=== PATIENT | female | born 1930 | race Caucasian/White ===

== ENCOUNTER 2017-08-10 02:15 | Inpatient (IN) | payer OTHER ==
[~2017-08-10] VITALS: Ht 154.9 cm; Wt 59.0 kg
[~2017-08-10 02:15] MED LIST: ADVAIR DISKU 11 UNIT INH; ALENDRONATE SOD70 M2 PO; AUGMENTIN 875-1 EACH PO; CARBIDOPA-LEVO1 EA13 PO; CARDIZEM 30 MG30 MG PO; LASIX20 MG PO; LEVOTHYROXINE100 MC1 PO; NITROGLYCERIN2.5 MG TOP; PRAVASTATIN SOD40 M2 PO; PREDNISONE10 M2 PO; PREDNISONE10 MG PO; SENNA-PLUS 50 M1 TAB PO; SPIRIVA 18 MCG18 MCG INH
--- NOTE | 2017-08-10 03:14 | ED DYSPNEA/ASTHMA COMPLAINT ---
History of Present Illness General Chief Complaint: Dyspnea (COPD, CHF, Other) Stated Complaint: PT BIBA C/O DIFF BREATHING Source: patient, family, old records, EMS Exam Limitations: dementia Vital Signs & Intake/Output Vital Signs & Intake/Output Vital Signs Date Time Temp Pulse Resp B/P B/P Pulse O2 O2 Flow FiO2 Mean Ox Delivery Rate 08/10 0342 97 Nasal 2.0L Cannula 08/10 226 93 Nasal 3.0L Cannula 08/11 219 97.9 105 20 124/66 95 Nasal 2.0L Cannula Allergies Coded Allergies: codeine (Severe, MY HEAD FELT LIKE IT WAS GOING TO EXPLODE 06/21/17) Reconcile Medications Alendronate Sodium 70 MG TAB 1 TAB PO ONCE A WEEK BONES (Reported) Amoxicillin/Potassium Clav (Augmentin 875-125 Tablet) 875 MG-125 MG TABLET 1 TAB PO BID COPD EXACERBATION Diltiazem HCl (Cardizem 30 MG Tablet) 30 MG TAB 1 TAB PO Q8 HEART RATE CONTROL PLEASE 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 KEEP FOR 12 HRS, AND OFF FOR 12 HOURS PER DAY Pravastatin Sodium 40 MG TABLET 1 TAB PO DAILY CHOLESTEROL (Reported) Prednisone 10 MG TAB 0 PO DAILY COPD PLEASE TAKE 3 TABS ON 03/17 AND 03/18 2 TABS ON 03/19, 03/20 AND 03/21 1 TAB ON 03/22, 03/23 AND 03/24 Prednisone 10 MG TABLET 1 TAB PO DAILY COPD EXACERBATION TAKE 3 TABS FOR 3 DAYS THEN TAKE 2 TABS FOR 3 DAYS THEN TAKE 1 TAB FOR 3 DAYS Tiotropium [place] (Spiriva) 18 MCG CAP.W.DEV 1 CAP INH DAILY EMPHYSEMA ( Reported) Triage Note: BIBA FROM HOME WITH C/O CHF EXACERBATION. PER EMS PT REPORTS DIFFICULTY BREATHING X1 DAY. PT ON O2 AT 2 L NC AT BASELINE. EMS HAD GIVEN PT 3 NITROS FOR ELEVATED BPS. PT ARRIVES ON 4 L NC. PT TITRATED DOWN TO 2 L NC. VSS. PT HAS ABRASION TO RIGHT ARM. Triage Nurses Notes Reviewed? yes Onset: Last week Duration: day(s):, changing over time, continues in ED, getting worse Timing: recent history Severity: moderate Activities at Onset: activity Prior Episodes/Possible Cause: occasional episodes Modifying Factors: Improves With: rest. Worsens With: movement. Associated Symptoms: cough, edema, wheezing, weakness LMP (ages 10-50): post menopausal : No Patient currently breastfeeds: No HPI: 1 week prior to admission family reports the patient has had increasing dyspnea on exertion wheezing shortness of breath at rest ankle swelling with chronic cough. There's been no fever chills nausea vomiting diarrhea abdominal pain chest pain headache dysuria rash bleeding. Past History Travel History Traveled to [place] past 21 day No Medical History Any Pertinent Medical History? 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 No Review of Systems Review of Systems Constitutional: Reports: see HPI, weakness. EENTM: Reports: no symptoms. Respiratory: Reports: see HPI, cough, short of breath, sputum production, wheezing. Cardiovascular: Reports: see HPI, edema. GI: Reports: no symptoms. Genitourinary: Reports: no symptoms. Musculoskeletal: Reports: no symptoms. Skin: Reports: no symptoms. Neurological/Psychological: Reports: no symptoms. Hematologic/Endocrine: Reports: no symptoms. Immunologic/Allergic: Reports: no symptoms. All Other Systems: Reviewed and Negative Physical Exam Physical Exam General Appearance: well developed/nourished, alert, awake, anxious, mild distress, obese Head: atraumatic, normal appearance Eyes: Bilateral: normal appearance, PERRL, EOMI. Ears, Nose, Throat: normal pharynx, normal ENT inspection Neck: normal inspection, supple, full range of motion, no midline tenderness Respiratory: chest non-tender, quiet respiration, decreased breath sounds, wheezing Cardiovascular: regular rate/rhythm, normal peripheral pulses, norml femoral pulses equa Peripheral Pulses: 4+ carotid (R), 4+ carotid (L) Gastrointestinal: normal bowel sounds, soft, non-tender, no organomegaly Extremities: normal capillary refill, normal range of motion, pedal edema, no ligament instability Neurologic/Psych: no motor/sensory deficits, awake, alert, normal gait, normal mood/affect Skin: normal color, rash Lymphatic: no anterior cervical makeda Core Measures ACS in differential dx? No CVA/TIA Diagnosis No Sepsis Present: No Sepsis Focused Exam Completed? No Progress Differential Diagnosis: asthma, bronchitis, CHF, COPD, pneumonia Plan of Care: Orders Procedure Date/time Status Regular Diet 08/10 B Active Patient Data 08/10 1644 Active OXYGEN SETUP (GEN) 08/10 0408 Active Saline Lock 08/10 0408 Active Admit to inpatient 08/10 0408 Active Vital Signs 08/10 0408 Active Activity/Ambulation 08/10 0408 Active Code Status 08/10 0408 Active TROPONIN LEVEL 08/10 0257 Complete MAGNESIUM 08/10 0257 Complete COMPREHENSIVE METABOLIC PANEL 08/10 0257 Complete CBC WITHOUT DIFFERENTIAL 08/10 0257 Complete B-TYPE NATRIURETIC PEP (BNP) 08/10 0257 Complete EKG 08/10 0233 Active Laboratory Tests 08/10/17 0327: Anion Gap 11, Estimated GFR 53 L, BUN/Creatinine Ratio 23.0, Glucose 106 H, Calcium 9.4, Magnesium 1.8, Total Bilirubin 0.3, AST 14, ALT 12, Alkaline Phosphatase 62, Troponin I < 0.01, Nhk-D-Ergxcgbnzdh Pept 270 H, Total Protein 6.1 L, Albumin 3.4 L, Globulin 2.7, Albumin/Globulin Ratio 1.3, CBC w Diff NO MAN DIFF REQ, RBC 3.89 L, MCV 91.3, MCH 30.0, MCHC 32.9 L, RDW 13.8, MPV 8.3, Gran % 73.3, Lymphocytes % 15.5 L, Monocytes % 6.9, Eosinophils % 3.2, Basophils % 1.1, Absolute Granulocytes 6.7 H, Absolute Lymphocytes 1.4, Absolute Monocytes 0.6, Absolute Eosinophils 0.3, Absolute Basophils 0.1 Diagnostic Imaging: Viewed by Me: Radiology Read. Discussed w/RAD: Radiology Read. CXR Impression: No acute airspace disease. Lung hyperinflation. Initial ED EKG: normal axis, normal intervals, normal p-waves, normal QRS complex, normal sinus rhythm, no ST T wave changes Prior EKG: unchanged Rhythm Strip: normal sinus rhythm Departure Departure Disposition: STILL A PATIENT Condition: Stable Clinical Impression Primary Impression: COPD exacerbation Secondary Impressions: CHF (congestive heart failure) Referrals: Kerwin Deshpande MD (PCP/Family) Departure Forms: Customer Survey General Discharge Information Admission Note Spoke With: Magdy Khan MD Documentation of Exam: Documentation of any treatments & extenuating circumstances including Concerns Regarding Discharge (functional status, medication knowledge or non-compliance, living conditions, etc.) that warrant an admission rather than observation: Supplemental oxygen serial beta agonist nebs IV steroids IV diuresis pulmonary evaluation cardiology evaluation physical therapy medication adjustment continuing care discharge planning Critical Care Note Critical Care Note Critical Care Time: 30-74 min (35)
--- NOTE | 2017-08-10 03:24 | RADIOLOGY REPORT ---
EXAMINATION: CHEST 1 VIEW CLINICAL INFORMATION: Shortness of breath. Wheezing. COMPARISON: June 21, 2017. TECHNIQUE: An AP view of the chest is provided. FINDINGS: The cardiac silhouette is not enlarged. The mediastinal and hilar contours are unremarkable. There are neither pleural effusions nor pneumothoraces. There are no consolidations. The lungs are hyperinflated. The osseous structures are stable. IMPRESSION: No acute airspace disease. Lung hyperinflation.
[2017-08-10 03:35] LABS: ABSOLUTE BASOPHIL COUNT 0.1 /CUMM (0.0-0.2); ABSOLUTE EOSINOPHIL COUNT 0.3 /CUMM (0.0-0.7); ABSOLUTE GRANULOCYTE CT 6.7 /CUMM (1.4-6.5); ABSOLUTE LYMPH COUNT 1.4 /CUMM (1.2-3.4); ABSOLUTE MONOCYTE COUNT 0.6 /CUMM (0.10-0.60); BASOPHIL % 1.1 % (0.0-2.0); EOSINOPHIL % 3.2 % (0-5); GRANULOCYTE % 73.3 % (42.2-75.2); HEMATOCRIT 35.5 % (37-47); MEAN CORPUSCULAR HGB CONC 32.9 G/DL (33.0-37.0); MEAN CORPUSCULAR VOLUME 91.3 FL (81.0-99.0); MEAN PLATELET VOLUME 8.3 FL (7.4-10.4); PLATELET COUNT 243 /CUMM (130-400); RBC DISTRIBUTION WIDTH 13.8 % (11.5-14.5); RED BLOOD CELL CT 3.89 /CUMM (4.20-5.40); WHITE BLOOD CELL COUNT 9.2 /CUMM (4.8-10.8)
--- NOTE | 2017-08-10 04:58 | History & Physical ---
Chen HARDING,Jordana 08/10/17 0458: General Information and HPI MD Statement: I have seen and personally examined SHRUTHI WOLFE and documented this H&P. The patient is a 87 year old F who presented with a patient stated chief complaint of [SOB]. Source of Information: patient, family, old records Exam Limitations: no limitations History of Present Illness: 84 YO F with a PMH of COPD (on home O2, 2L), hypothyroidism, hyperlipidemia, HFpEF,dementia who was BIBA for chief complaint of acute progressive worsening of shortness of breath. As per the patient daughter who was at the bedside patient woke up at around 1:50 AM complaining of shortness of breath and not being able to breathe. She asked her daughter to call 911. Patient has been experiencing increasing shortness of breath over the past month with severe episode of worsening shortness of breath which have been last week. The patient daughter tried to reassure her which helped to improve the shortness of breath. At baseline the patient is on 2 L nasal oxygen however her daughter had to increase it to 3 L while walking due to shortness of breath. Patient also reports a chronic cough with expectoration of whitish sputum, denies fever, chills, nausea, vomiting, diarrhea or constipation. She also denies any chest pain or palpitation Patient follow-up with Dr. Castañeda and Dr. Terry Vitals on admission: Blood pressure 124/66, pulse 105, temperature 97.9, pulse ox 95 on 2 L nasal cannula. Labs on admission: CBCT showed WBC 9.2, hemoglobin 11.7, hematocrit 35.5, platelets 243 Sodium 147, potassium 4.2, BUN 23, creatinine 1, glucose 106 BNP 270 Chest x-ray:No acute airspace disease. Lung hyperinflation. EKG: Normal sinus rhythm 101, AZ 131, QTc 446, no STT wave changes Last echo on 03/09 showed 1. This was a technically difficult examination. 2. Mild to moderate aortic sclerosis is present with no valvular stenosis or insufficiency. 3. Mitral leaflet thickening is present with mild to moderate anular calcification and minimal mitral insufficiency with mild left atrial dilatation. 4. There is no significant pericardial fluid present. 5. The left ventricular chamber size is normal. THere appears to be mild localized posterobasal hypokinesia present with an ejection fraction of at least 55%. 6. The right heart structures were not optimally visualized. Minimal to mild tricuspid insufficiency is present. The RV systolic pressure was not accurately assessed. 7. Since the prior outpatient echocardiogram of 06/07, there has been no change. 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 Cardiovascular: Reports: edema, peripheral edema. Respiratory: Reports: cough, short of breath, wheezing. GI: Denies: no symptoms. Genitourinary: Denies: no symptoms. Musculoskeletal: Denies: no symptoms. Neurological/Psychological: Denies: no symptoms. Exam & Diagnostic Data Last 24 Hrs of Vital Signs/I&O Vital Signs Date Time Temp Pulse Resp B/P B/P Pulse O2 O2 Flow FiO2 Mean Ox Delivery Rate 08/10 0342 97 Nasal 2.0L Cannula 08/10 0227 93 Nasal 3.0L Cannula 08/10 0220 97.9 105 20 124/66 95 Nasal 2.0L Cannula Intake & Output 08/10 0800 08/10 0000 08/09 1600 Intake Total Output Total Balance Patient 130 lb Weight Weight Estimated Measurement Method Physical Exam General Appearance Alert, Cooperative, No Acute Distress HEENT Atraumatic, PERRLA, EOMI, Mucous Membr. moist/pink Neck Supple Cardiovascular Normal S1, Normal S2 Lungs bilateral wheezing and decreased air entery Abdomen Normal Bowel Sounds, Soft Neurological Normal Speech Extremities No Clubbing, No Cyanosis, 2 + pitting edema more on the left leg 3X3 cm laceration on the left forearm, and 3X3 bruise on the left arm Assessment/Plan Assessment: 84 YO F with a PMH of COPD (on home O2, 2L), hypothyroidism, hyperlipidemia, HFpEF,dementia who was BIBA for chief complaint of acute progressive worsening of shortness of breath. As per the patient daughter who was at the bedside patient woke up at around 1:50 AM complaining of shortness of breath and not being able to breathe. She asked her daughter to call 911. Patient has been experiencing increasing shortness of breath over the past month with severe episode of worsening shortness of breath which have been last week. Problem list: COPD exacerbation ? CHF exacerbation Chronic medical conditions including hypothyroidism, hyperlipidemia, HF PEF Plan: Admit to telemetry Continuous telemetry monitoring IV Solu-Medrol 40 mg every 8 IV azithromycin TRC, nebs Oxygen supplementation to keep oxygen saturation above 92 P.o. Mucinex twice daily Strict I's and O's Daily weights Cardiology consult in a.m. (Dr. Castañeda Pulmonology consult in a.m. (Dr. Rosario Doppler ultrasound lower extremity to rule out DVT Continue home meds Can consider starting IV Lasix depending on the volume status with the patient Full code Heart healthy diet DVT prophylaxis with subcutaneous heparin As Ranked By This Provider Problem List: 1. COPD exacerbation Core Measures/Misc (12/10) Acute Coronary Syndrome ACS Diagnosis: No Congestive Heart Failure Congestive Heart Failure Diagnosis No Cerebrovascular Accident CVA/TIA Diagnosis: No VTE (View Protocol) VTE Risk Factors Age>40 No Mechanical VTE Prophylaxis d/t N/A MechProphylax Ordered No VTE Pharm Prophylaxis d/t NA PharmProphylax ordered Sepsis (View protocol) Sepsis Present: No Rubens Marcum MD 08/10/17 0501: General Information and HPI Allergies/Medications Home Med list Albuterol Sulfate 1.25 MG/3 ML VIAL.NEB 1 Vial INH/VU Q4-6 PRN COPD ( Reported) Alendronate Sodium 70 MG TABLET 1 TAB PO QW BONE (Reported) in the morning, at least 30 minutes before the first food, beverage, or medication of the day Diltiazem HCl 30 MG TABLET 1 TAB PO BID HEART (Reported) Levothyroxine Sodium 100 MCG TABLET 1 TAB PO DAILY HYPOTHYROIDISM (Reported) Pravastatin Sodium 40 MG TABLET 1 TAB PO QPM HYPERLIPIDEMIA, HEART (Reported) Umeclidinium [place] (Incruse Ellipta) 62.5 MCG/ACTUATION BLST.W.DEV 62.5 MG INH DAILY COPD (Reported) Resident Review Statement Resident Statement: examined this patient, discussed with international nurse, agreed with international nurse, discussed with family, reviewed EMR data (avail), discussed with nursing , reviewed images, amended to note Other Findings: 87 yo F with pmh of COPD on 2 L oxygen at home, hypothyroidism, diastolic CHF, hyperlipidemia, dementia, ? Osteoporosis, was brought into the emergency via ambulance, for worsening shortness of breath. The patient was in her usual state of health, using oxygen via nasal cannula at 2 L/m, ambulating on a rolling walker with support until a week ago, when she started having increased shortness of breath, to the point where yesterday morning she was short of breath even at rest. She denied any chest pain, palpitation, chest heaviness/ pressure, changes in her cough/sputum, fever/chills, but mentioned that her daughter had noticed her legs to be more swollen than usual. In the field, patient received 3 nitroglycerin, and she had received IV diuretic and IV steroids already in the ED at the time of interview, thus the patient was complaining of headache. She was having b/l auditory wheezing. Vitals, labs, images as noted above. EKG heart rate 101, QTC 446, AZ 131, no acute ischemic changes noted. Patient is being admitted in the telemetry floor for the management of following issues: #Acute hypoxic respiratory failure, secondary to a COPD, CHF exacerbation Patient's history including worsening shortness of breath with increasing leg edema with JVR (with no JVD), and getting better with IV Lasix is suggestive of acute CHF but her cough, wheezing extensively could be due to AE of COPD. The fact that she is progressively getting short of breath at home in the setting of COPD could also mean cor pulmonale. * Admit patient to telemetry * Monitor vitals, SPO2, I/O regularly * Oxygen to titrate SPO2 > 90% * TRC/nebs * IV steroids every 8 hours for now * IV azithromycin considering AE of COPD * Serial troponin and EKG to rule out ACS * Monitor daily weights * Patient already received IV Lasix today, please reassess for further diuresis * Cardiology (Dr Castañeda) and pulmonary (Dr Cameron) consultation to be placed * Mucinex ordered BID #Will continue rest of her home medications. #Housekeeping: Diet: Heart healthy/regular DVT prophylaxis: SQ Lovenox CODE STATUS: Full code MEDS confirmed at [facility] at [facility] [place] by me: 08/10/17: all oral: levothyroxine 100 mcg daily alendronate 70 q week albuterol nebs diltiazem ir 30 BID pravastatin 40 HS INCRUSE ELLIPTA 62.5 mcg daily ErinMagdy greene 08/10/17 0551: Attending MD Review Statement Attending Statement Attending MD Statement: examined this patient, discuss w/resident/PA/GOVERNMENT PROGRAM MANAGER, agreed w/resident/PA/GOVERNMENT PROGRAM MANAGER, discussed with family, reviewed EMR data (avail), reviewed images, amended to note Attending Assessment/Plan: CC: Worsening shortness of breath PMH: COPD on 2 L nasal cannula, hypothyroidism, HLD, HFpEF, dementia Patient came to ER for acute worsening of shortness of breath. According to daughter patient woke up with severe shortness of breath, wheezing, cost her to call 911. Patient denied any chest pain or chest tightness or pressure-like symptoms at that time. "I just could not breathe". According to daughter she has been noticing progressive worsening of shortness of breath since last 1 month, gradually worsening, more so with dyspnea on exertion, wheezing, family also noticed worsening of leg swelling. Daughter had to increase her oxygen from 2 L to 3 L while walking. Patient has productive cough which is chronic, no change in the color of sputum. Patient denies any fever or chills but has mild headache , otherwise complete ROS unremarkable. Vitals: Temperature 97.9, pulse 105, RR 20, blood pressure 124/66, saturating 95 % on 3 L nasal cannula On exam: A O 3, cooperative, in moderate respiratory distress, neck supple, JVD normal, JVR +, no lymphadenopathy, mucosa moist, no focal neurological deficit, residual right leg stiffness, +1 leg edema L> R, skin laceration on right forearm, CVS: S1-S2, RRR. RS: Wheezing throughout the lung galeano. Abdomen: Soft , NT, ND, bowel sounds present. CXR: No acute airspace disease. Lung hyperinflation. Assessment and plan 87-year-old female with above-mentioned past medical history presented in ER for acute on chronic shortness of breath. According to daughter patient has been getting progressively short of breath over last 1 month duration, more dyspnea on exertion but over last 2 days patient was short of breath even at rest. Today patient woke up from her sleep with difficulty breathing, wheezing and they called 911. Patient received [address] as her blood pressure was high according to the EMS note. After arrival in ER patient received nebulization treatment, Lasix 40 mg and Solu-Medrol, had moderate symptom relief. On our examination she was still wheezing throughout the lung galeano, no obvious JVD but JVR present, mild leg swelling L > R, pitting. Patient appears to have COPD exacerbation but a competent of heart failure or cor pulmonale cannot be denied. Patient currently not on any oral Lasix at home. + COPD exacerbation + Suspected heart failure and cor pulmonale + Headache secondary to nitroglycerin + History of COPD on 2 L nasal cannula, hypothyroidism, HLD, HFpEF - Admit to telemetry - Continuous telemetry monitoring - Continue O2 by nasal cannula - Reevaluate for volume status tomorrow for IV Lasix - Strict I's and O's - Daily weights - Serial troponin and EKGs - Cardiology consult in a.m. : Patient known to Dr. Castañeda - IV methylprednisolone 40 mg every 8 hours - IV azithromycin - TRC nebulization with albuterol and ipratropium scheduled and when necessary - Mucinex scheduled twice a day - Continue rest of the home medications - Pulmonology consult: Patient known to Dr. Hardin - Adequate pain control - DVT prophylaxis
--- NOTE | 2017-08-10 05:53 | Admission Certification ---
Admission Certification Certification Statement - As attending physician, I certify that at the time of - admission, based on clinical presentation, severity of - symptoms, need for further diagnostic testing and - therapeutic interventions, and risk of adverse outcomes - without in-hospital treatment, in my clinical assessment, - this patient requires an acute hospital stay for a minimum - of two nights or longer. I have also considered psychsocial - factors such as support system, advanced age, financial - issues, cognitive issues, and failed out-patient treatments, - past re-admission history, safety of patient, and lack of - compliance as applicable. Specific rationale supporting this admission is: COPD exacerbation, heart failure
[2017-08-10] MEDS ORDERED: INCRUSE ELLI62.5 MCG INH (05:57)
[2017-08-10] MEDS ORDERED: ALBUTEROL1.25 MG/1 INH/SOL (05:57)
[2017-08-10] MEDS ORDERED: CARDIZEM30 M1 PO (05:58)
[2017-08-10] MEDS ORDERED: DILTIAZEM HCL30 M1 PO (05:59)
[2017-08-10 07:02] VITALS: BP 142/90
--- NOTE | 2017-08-10 10:26 | PN- Att Addend ---
See Addendum Attending Addendum Attending Brief Note 87-year-old female with above-mentioned past medical history presented in ER for SOB on exertion, mild leg swelling L > R, pitting. BNP 270. Received steroids overnight with improvement. Vitals and labs noted. 1 COPD exacerbation 2 Acute on chronic respiratroy insufficiency and cor pulmonale 3 hypertension uncontrolled on arrival now with improvement 4 History of COPD on 2 L nasal cannula, hypothyroidism, HLD, HFpEF - Continuous telemetry monitoring - Continue O2 by nasal cannula - Strict I's and O's - Daily weights - Serial troponin and EKGs - Cardiology consult - IV methylprednisolone 40 mg every 8 hours - IV azithromycin - TRC nebulization with albuterol and ipratropium scheduled and when necessary - Mucinex scheduled twice a day - Continue rest of the home medications - Pulmonology consult if no improvement - Adequate pain control - DVT prophylaxis PCP Dr Deshpande. Ranjan plan of care as per admitting physician. Admission Lab Results I reviewed the following labs: Laboratory Tests 08/10 08/10 0905 0327 Chemistry Sodium (137 - 145 mmol/L) 147 H Potassium (3.5 - 5.1 mmol/L) 4.2 Chloride (98 - 107 mmol/L) 105 Carbon Dioxide (22 - 30 mmol/L) 31 H Anion Gap (5 - 16) 11 BUN (7 - 17 mg/dL) 23 H Creatinine (0.5 - 1.0 mg/dL) 1.0 Estimated GFR (>60 ml/min) 53 L BUN/Creatinine Ratio (7 - 25 %) 23.0 Glucose (65 - 99 mg/dL) 106 H Calcium (8.4 - 10.2 mg/dL) 9.4 Magnesium (1.6 - 2.3 mg/dL) 1.8 Total Bilirubin (0.2 - 1.3 mg/dL) 0.3 AST (14 - 36 U/L) 14 ALT (9 - 52 U/L) 12 Alkaline Phosphatase (<127 U/L) 62 Troponin I (< 0.11 ng/ml) Pending < 0.01 Wrf-O-Vahisnqaleo Pept (<125 pg/mL) 270 H Total Protein (6.3 - 8.2 g/dL) 6.1 L Albumin (3.5 - 5.0 g/dL) 3.4 L Globulin (1.9 - 4.2 gm/dL) 2.7 Albumin/Globulin Ratio (1.1 - 2.2 %) 1.3 Hematology CBC w Diff NO MAN DIFF REQ WBC (4.8 - 10.8 /CUMM) 9.2 RBC (4.20 - 5.40 /CUMM) 3.89 L Hgb (12.0 - 16.0 G/DL) 11.7 L Hct (37 - 47 %) 35.5 L MCV (81.0 - 99.0 FL) 91.3 MCH (27.0 - 31.0 PG) 30.0 MCHC (33.0 - 37.0 G/DL) 32.9 L RDW (11.5 - 14.5 %) 13.8 Plt Count (130 - 400 /CUMM) 243 MPV (7.4 - 10.4 FL) 8.3 Gran % (42.2 - 75.2 %) 73.3 Lymphocytes % (20.5 - 51.1 %) 15.5 L Monocytes % (1.7 - 9.3 %) 6.9 Eosinophils % (0 - 5 %) 3.2 Basophils % (0.0 - 2.0 %) 1.1 Absolute Granulocytes (1.4 - 6.5 /CUMM) 6.7 H Absolute Lymphocytes (1.2 - 3.4 /CUMM) 1.4 Absolute Monocytes (0.10 - 0.60 /CUMM) 0.6 Absolute Eosinophils (0.0 - 0.7 /CUMM) 0.3 Absolute Basophils (0.0 - 0.2 /CUMM) 0.1 Admission Meds I reviewed the following Meds: Current Medications Sig/Tata Start time Last Medication Dose Stop Time Status Admin Acetaminophen 650 MG Q6P PRN 08/10 0600 AC 08/10 (Tylenol) 0549 Acetaminophen 1,000 MG Q6P PRN 08/10 0600 AC (Ofirmev) Albuterol Sulfate 3 ML Q6P PRN 08/10 0615 AC (Proventil) Alendronate Sodium 70 MG QTHURS@0700 08/16 0700 AC (Fosamax) Atorvastatin Calcium 40 MG 1700 08/10 1700 AC (Lipitor) Azithromycin 500 MG DAILY 08/10 09 AC 08/10 (Zithromax) 08/14 958 09 Sodium Chloride 250 ML (Normal Saline 0.9%) Diltiazem HCl 30 MG BID 08/10 0900 AC 08/10 (Cardizem) 922 Enoxaparin Sodium 40 MG DAILY 08/10 0900 AC 08/10 (Lovenox) 922 Guaifenesin 600 MG Q12 08/10 0900 AC 08/10 (Mucinex) 922 Levothyroxine Sodium 0.1 MG DAILY AC 08/10 0700 AC 08/10 (Synthroid) 06 Methylprednisolone 40 MG Q8 08/10 06 AC (Solumedrol) Polyethylene Glycol 17 GM AT BEDTIME NEED.. 08/10 0600 AC (Miralax) Tiotropium [place] 1 PUF DAILY 08/10 0900 AC 08/10 (Spiriva) 922
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
--- NOTE | 2017-08-10 12:04 | Cons- Cardiology ---
General Information and HPI Consulting Request Date of Consult: 08/10/17 Requested By: Javi Russ MD Reason for Consult: Dyspnea; rule out CHF Source of Information: patient History of Present Illness: The patient is an 84-year-old female who is well-known to me. Her past medical history is remarkable for COPD on home oxygen therapy, hypothyroidism, hyperlipidemia, prior diastolic heart failure, mild dementia, etc. The patient was admitted to the hospital for worsening shortness of breath over the last several days which became acutely more prominent over the last 24 hours. From a cardiac perspective, the patient denies any other cardiac symptoms. Of note, her chest x-ray shows no overt evidence of heart failure and her examination is otherwise unremarkable for lower extremity edema, etc. In addition, her proBNP is only 270 Allergies/Medications Allergies: Coded Allergies: codeine (Severe, MY HEAD FELT LIKE IT WAS GOING TO EXPLODE 06/21/17) Home Med List: Albuterol Sulfate 1.25 MG/3 ML VIAL.NEB 1 Vial INH/VU Q4-6 PRN COPD ( Reported) Alendronate Sodium 70 MG TABLET 1 TAB PO QW BONE (Reported) in the morning, at least 30 minutes before the first food, beverage, or medication of the day Diltiazem HCl 30 MG TABLET 1 TAB PO BID HEART (Reported) Levothyroxine Sodium 100 MCG TABLET 1 TAB PO DAILY HYPOTHYROIDISM (Reported) Pravastatin Sodium 40 MG TABLET 1 TAB PO QPM HYPERLIPIDEMIA, HEART (Reported) Umeclidinium [place] (Incruse Ellipta) 62.5 MCG/ACTUATION BLST.W.DEV 62.5 MG INH DAILY COPD (Reported) Current Medications: Current Medications Sig/Tata Start time Last Medication Dose Route Stop Time Status Admin Acetaminophen 650 MG Q6P PRN 08/10 0600 AC 08/10 PO 0549 Acetaminophen 1,000 MG Q6P PRN 08/10 06 AC IV Acetaminophen 0 .STK-MED ONE 08/10 0558 DC PO Albuterol Sulfate 3 ML Q6P PRN 08/10 0615 AC 08/10 INH 1132 Albuterol Sulfate 3 ML ONCE ONE 08/10 0300 DC 08/10 INH 08/10 0301 0338 Alendronate Sodium 70 MG QTHURS@0700 08/16 0700 AC PO Atorvastatin Calcium 40 MG 1700 08/10 1700 AC PO Azithromycin 500 MG DAILY 08/10 09 AC 08/10 Sodium Chloride 250 ML IV 08/14 0959 0923 Diltiazem HCl 30 MG BID 08/10 09 AC 08/10 PO 0923 Enoxaparin Sodium 40 MG DAILY 08/10 09 AC 08/10 SC 0923 Furosemide 0 .STK-MED ONE 08/10 0502 DC IV Furosemide 40 MG ONCE ONE 08/10 0415 DC 08/10 IV 08/10 0416 0503 Guaifenesin 600 MG Q12 08/10 09 AC 08/10 PO 0923 Ipratropium [place] 2.5 ML ONCE ONE 08/10 0300 DC 08/10 INH 08/10 0301 0338 Levothyroxine Sodium 0.1 MG DAILY AC 08/10 0700 AC 08/10 PO 0640 Methylprednisolone 40 MG Q8 08/10 06 AC IV Methylprednisolone 0 .STK-MED ONE 08/10 0502 DC .ROUTE Methylprednisolone 125 MG ONCE ONE 08/10 0415 DC 08/10 IV 08/10 0416 0503 Polyethylene Glycol 17 GM AT BEDTIME NEED.. 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 Surgical History Surgical History: non-contributory Family History Relations & Conditions If Any: Relation not specified for: *No pertinent family history Psychosocial History Smoking Status: Former Smoker ETOH Use: denies use Illicit Drug Use: denies illicit drug use Exam & Diagnostic Data Vital Signs and I&O Vital Signs Date Time Temp Pulse Resp B/P B/P Pulse O2 O2 Flow FiO2 Mean Ox Delivery Rate 08/10 1103 97 Nasal 2.0L Cannula 08/10 0702 98.2 92 20 142/90 97 Nasal Cannula 08/10 0342 97 Nasal 2.0L Cannula 08/10 022 93 Nasal 3.0L Cannula 08/10 022 97.9 105 20 124/66 95 Nasal 2.0L Cannula Intake & Output 08/10 1600 08/10 0800 05/18 0000 08/09 1600 08/09 0800 08/09 0000 Intake Total Output Total 500 Balance -500 Output, Urine 500 Patient 126 lb 130 lb Weight Weight Estimated Measurement Method Physical Exam: General Appearance: well developed/nourished, alert, awake, oriented Head: normal HEENT: Normal Neck: supple, JVP normal, carotid upstrokes normal bilaterally, no masses or thyromegaly Respiratory: chest non-tender, bilateral scattered rhonchi with decreased air entry Cardiovascular: regular rate/rhythm, normal S1, S2, 2/6 systolic murmur Abdomen: normal bowel sounds, soft, non-tender Extremities: normal inspection, no significant edema Vascular: Pulses are 2+ and equal bilaterally Neurologic: Grossly normal/nonfocal Labs/Farzad Results: Laboratory Tests 08/10 08/10 0905 0327 Chemistry Sodium (137 - 145 mmol/L) 147 H Potassium (3.5 - 5.1 mmol/L) 4.2 Chloride (98 - 107 mmol/L) 105 Carbon Dioxide (22 - 30 mmol/L) 31 H Anion Gap (5 - 16) 11 BUN (7 - 17 mg/dL) 23 H Creatinine (0.5 - 1.0 mg/dL) 1.0 Estimated GFR (>60 ml/min) 53 L BUN/Creatinine Ratio (7 - 25 %) 23.0 Glucose (65 - 99 mg/dL) 106 H Calcium (8.4 - 10.2 mg/dL) 9.4 Magnesium (1.6 - 2.3 mg/dL) 1.8 Total Bilirubin (0.2 - 1.3 mg/dL) 0.3 AST (14 - 36 U/L) 14 ALT (9 - 52 U/L) 12 Alkaline Phosphatase (<127 U/L) 62 Troponin I (< 0.11 ng/ml) < 0.01 < 0.01 Shh-S-Pfrsvtloqbj Pept (<125 pg/mL) 270 H Total Protein (6.3 - 8.2 g/dL) 6.1 L Albumin (3.5 - 5.0 g/dL) 3.4 L Globulin (1.9 - 4.2 gm/dL) 2.7 Albumin/Globulin Ratio (1.1 - 2.2 %) 1.3 Hematology CBC w Diff NO MAN DIFF REQ WBC (4.8 - 10.8 /CUMM) 9.2 RBC (4.20 - 5.40 /CUMM) 3.89 L Hgb (12.0 - 16.0 G/DL) 11.7 L Hct (37 - 47 %) 35.5 L MCV (81.0 - 99.0 FL) 91.3 MCH (27.0 - 31.0 PG) 30.0 MCHC (33.0 - 37.0 G/DL) 32.9 L RDW (11.5 - 14.5 %) 13.8 Plt Count (130 - 400 /CUMM) 243 MPV (7.4 - 10.4 FL) 8.3 Gran % (42.2 - 75.2 %) 73.3 Lymphocytes % (20.5 - 51.1 %) 15.5 L Monocytes % (1.7 - 9.3 %) 6.9 Eosinophils % (0 - 5 %) 3.2 Basophils % (0.0 - 2.0 %) 1.1 Absolute Granulocytes (1.4 - 6.5 /CUMM) 6.7 H Absolute Lymphocytes (1.2 - 3.4 /CUMM) 1.4 Absolute Monocytes (0.10 - 0.60 /CUMM) 0.6 Absolute Eosinophils (0.0 - 0.7 /CUMM) 0.3 Absolute Basophils (0.0 - 0.2 /CUMM) 0.1 Diagnostic Data CXR Results FINDINGS: The cardiac silhouette is not enlarged. The mediastinal and hilar contours are unremarkable. There are neither pleural effusions nor pneumothoraces. There are no consolidations. The lungs are hyperinflated. The osseous structures are stable. IMPRESSION: No acute airspace disease. Lung hyperinflation. Assessment/Plan Assessment/Plan Assessment: 1. Worsening shortness of breath; likely related to COPD exacerbation.-At the moment, I do not see any evidence of acute or chronic heart failure. The patient's chest x-ray is clear with no evidence of interstitial edema. Her proBNP is only 270. She has no significant lower extremity edema. 2. History of right heart failure/cor pulmonale 3. History of hyperlipidemia 4. Hypothyroidism Recommendations: -Continue current management as per the medical and pulmonary team -Follow-up echocardiogram to reassess left ventricular function and right ventricular systolic pressure -Further plans after the echocardiogram. -If the patient is to receive IV Lasix, please monitor her renal function, intakes, outputs, and daily weights very closely. Consult Acknowledgment - Thank you for your consult request.
--- NOTE | 2017-08-10 14:33 | ULTRASOUND REPORT ---
EXAMINATION: US TRIPLEX OF LOWER EXTREMITIES, BILATERAL CLINICAL INFORMATION: Bilateral lower extremity swelling COMPARISON: None TECHNIQUE: Color-flow triplex imaging with spectral analysis and compression Doppler were performed on the lower extremities. FINDINGS: Respiratory variation, normal compression and augmented flow are noted throughout the lower extremities. The visualized common femoral vein, superficial femoral vein, profunda femoral vein, popliteal vein and midcalf peroneal and posterior tibial venous segments show no evidence of deep venous thrombosis. There is no Owens's cyst. IMPRESSION: Normal triplex scan without evidence of deep venous thrombosis involving the lower extremities.
[2017-08-10 14:54] VITALS: BP 123/58
[2017-08-10] MEDS ORDERED: ADVAIR 250-501 EACH INH (16:05)
[2017-08-10 22:27] VITALS: BP 118/76
[2017-08-11 06:16] VITALS: BP 128/78
--- NOTE | 2017-08-11 08:09 | PN- Housestaff ---
See Addendum Subjective Follow-up For: AECOPD ?CHF Tele-Events Since Last Visit: NSR with HR 62-91. No overnight events. Subjective: Patient was seen and examined at bedside. Reports feeling well. Has no complaints. No overnight events. Review of Systems Constitutional: Reports: no symptoms. Objective Last 24 Hrs of Vital Signs/I&O Vital Signs Date Time Temp Pulse Resp B/P B/P Pulse O2 O2 Flow FiO2 Mean Ox Delivery Rate 08/11 0616 97.9 97 20 128/78 95 Nasal Cannula 08/10 2227 98.5 109 18 118/76 96 Nasal Cannula 08/10 2122 Nasal 2.0L Cannula 08/10 2113 111 115/76 08/10 1959 96 Nasal 2.0L Cannula 08/10 1454 98.2 105 18 123/58 98 Nasal 2.0L Cannula 08/10 1205 Nasal 2.0L Cannula 08/10 1203 96 Nasal 2.0L Cannula 08/10 1103 97 Nasal 2.0L Cannula Intake & Output 08/11 1600 08/11 0800 08/11 0000 Intake Total Output Total 200 Balance -200 Number 1 Bowel Movements Output, Urine 200 Patient 127 lb Weight Physical Exam General Appearance: Alert, Oriented X3, Cooperative, No Acute Distress Skin: No Rashes, No Breakdown Skin Temp/Moisture Exam: Warm/Dry Sepsis Skin Exam (color): Normal for Ethnicity HEENT: Atraumatic Cardiovascular: Normal S1, Normal S2, No Murmurs Lungs: Clear to Auscultation, Normal Air Movement Abdomen: Soft, No Tenderness Neurological: Normal Speech Extremities: No Edema Last 24 Hrs of Lab/Farzad Results Last 24 Hrs of Labs/Mics: Laboratory Tests 08/11/17 0615: Anion Gap 12, Estimated GFR > 60, BUN/Creatinine Ratio 36.3 H, CBC w Diff Pending, WBC Pending, RBC Pending, Hgb Pending, Hct Pending, MCV Pending, MCH Pending, MCHC Pending, RDW Pending, Plt Count Pending, MPV Pending 08/10/17 1855: Anion Gap 11, Estimated GFR 53 L, BUN/Creatinine Ratio 31.0 H, Magnesium 1.8 08/10/17 1530: Troponin I < 0.01 Assessment/Plan Assessment: 84 YO F with a PMH of COPD (on home O2, 2L), hypothyroidism, hyperlipidemia, HFpEF,dementia who presented to ED with chief complaint of acute progressive worsening of shortness of breath. Assessment: 1. COPD exacerbation 2. History of hypothyroidism 3. History of hyperlipidemia and HFPEF Plan: * Continuous telemetry monitoring * Reduce IV Solu-Medrol 40 mg every 12. Reduce to daily tomorrow if clinically improving * IV azithromycin for a total of 5 days. * TRC, nebs as needed * Oxygen supplementation to keep oxygen saturation above 92%. Currently on 2L * Strict I's and O's * Cardiology and Pulm input appreciated * Echocardiogram - pending * DVT Prophylaxis: SC heparin x 3 * Diet: heart healthy * Code: Full Code Problem List: 1. COPD (chronic obstructive pulmonary disease) Pain Ratin Pain Location: none Pain Goal: Remain pain free Pain Plan: none Tomorrow's Labs & Rationales: CBC, BEP
[2017-08-11 08:34] LABS: ABSOLUTE BASOPHIL COUNT 0 /CUMM (0.0-0.2); ABSOLUTE EOSINOPHIL COUNT 0 /CUMM (0.0-0.7); ABSOLUTE GRANULOCYTE CT 12.9 /CUMM (1.4-6.5); ABSOLUTE LYMPH COUNT 0.9 /CUMM (1.2-3.4); ABSOLUTE MONOCYTE COUNT 0.5 /CUMM (0.10-0.60); BASOPHIL % 0 % (0.0-2.0); EOSINOPHIL % 0 % (0-5); HEMATOCRIT 37.8 % (37-47); MEAN CORPUSCULAR HGB 29.8 PG (27.0-31.0); MEAN CORPUSCULAR HGB CONC 32.4 G/DL (33.0-37.0); MEAN PLATELET VOLUME 9.3 FL (7.4-10.4); PLATELET COUNT 261 /CUMM (130-400); RBC DISTRIBUTION WIDTH 13.9 % (11.5-14.5); RED BLOOD CELL CT 4.11 /CUMM (4.20-5.40)
[2017-08-11 10:54] LABS: WHITE BLOOD CELL COUNT 14.3 /CUMM (4.8-10.8)
--- NOTE | 2017-08-11 13:29 | PN- Pulmonary ---
Subjective HPI/Critical Care Issues: Patient is seen and examined. Her shortness of breath is improving. She has no leg edema. She has no nausea no vomiting no diarrhea no constipation. She has no headaches. Her cough has subsided. Objective Current Medications: Current Medications Sig/Tata Start time Last Medication Dose Route Stop Time Status Admin Acetaminophen 650 MG Q6P PRN 08/10 0600 AC 08/10 PO 2118 Acetaminophen 1,000 MG Q6P PRN 08/10 0600 AC IV Albuterol Sulfate 3 ML BID 08/10 2100 AC 08/11 INH 0915 Alendronate Sodium 70 MG QTHURS@0700 08/16 0700 AC PO Atorvastatin Calcium 40 MG 1700 08/10 1700 AC 08/10 PO 1529 Azithromycin 500 MG DAILY 08/10 0900 AC 08/11 Sodium Chloride 250 ML IV 08/14 0959 0903 Diltiazem HCl 30 MG BID 08/10 0900 AC 08/11 PO 0902 Enoxaparin Sodium 40 MG DAILY 08/10 0900 AC 08/11 SC 0903 Guaifenesin 600 MG Q12 08/10 0900 AC 08/11 PO 0902 Levothyroxine Sodium 0.1 MG DAILY AC 08/10 0700 AC 08/11 PO 0513 Methylprednisolone 40 MG DAILY 08/12 0900 AC IV Methylprednisolone 40 MG Q12 08/11 2100 AC IV 08/12 0000 Methylprednisolone 40 MG Q8 08/10 0600 DC 08/11 IV 0513 Patient Medication 1 ED ONE ONE 08/10 1500 DC Teaching ED 08/10 1501 Polyethylene Glycol 17 GM AT BEDTIME NEED.. 08/10 0600 AC PO Prednisone 40 MG DAILY 08/12 0900 CAN PO Tiotropium [place] 1 PUF DAILY 08/10 0900 AC 08/11 INH 0902 Vital Signs & I&O Last 24 Hrs of Vitals and I&O: Vital Signs Date Time Temp Pulse Resp B/P B/P Pulse O2 O2 Flow FiO2 Mean Ox Delivery Rate 08/12 919 94 Nasal 2.0L Cannula 08/11 901 97 128/78 08/11 0800 94 Nasal 2.0L Cannula 08/12 615 97.9 97 20 128/78 95 Nasal Cannula 08/10 2226 98.5 109 18 118/76 96 Nasal Cannula 08/10 2121 Nasal 2.0L Cannula 08/10 2112 111 115/76 05/18 1959 96 Nasal 2.0L Cannula 08/10 1454 98.2 105 18 123/58 98 Nasal 2.0L Cannula Intake & Output 08/11 1600 08/11 0800 08/11 0000 Intake Total Output Total 200 Balance -200 Number 1 Bowel Movements Output, Urine 200 Patient 127 lb Weight Exam Other Physical Findings: gen awake and alert head/neck oxygen via nasal cannula cvs s1, s2 lungs b/l wheezing improved abd soft, bs+ ext - no edema Results Last 24 Hrs of Lab Results: Laboratory Tests 08/11/17 0615: Anion Gap 12, Estimated GFR > 60, BUN/Creatinine Ratio 36.3 H, CBC w Diff NO MAN DIFF REQ, RBC 4.11 L, MCV 92.0, MCH 29.8, MCHC 32.4 L, RDW 13.9, MPV 9.3, Gran % 90.0 H, Lymphocytes % 6.2 L, Monocytes % 3.8, Eosinophils % 0, Basophils % 0, Absolute Granulocytes 12.9 H, Absolute Lymphocytes 0.9 L, Absolute Monocytes 0.5, Absolute Eosinophils 0, Absolute Basophils 0 08/10/17 1855: Anion Gap 11, Estimated GFR 53 L, BUN/Creatinine Ratio 31.0 H, Magnesium 1.8 08/10/17 1530: Troponin I < 0.01 Impression/Plan Impression/Plan Impression/Plan: Impression 87 year old woman * chronic hypoxemic respiratory failure and COPD, now with an acute exacerbation of COPD likely secondary to environmental exposure (dust/humidity) Plan -titrate fio2 to a goal of >92% -keep solumedrol to 40mg iv q12h, can reduce to po prednisone 40mg tomorrow if no events -trc/nebs -zithromax has been started, can use for 5 days for anti-inflammatory properties DVT prophylaxis at all times
[2017-08-11 14:26] VITALS: BP 106/60
--- NOTE | 2017-08-11 16:20 | Patient Discharge Instructions ---
Discharge Instructions General Discharge Information You were seen/treated for: Shortness of breath 2/2 COPD exacerbation Special Instructions: Please follow up with your sales producer, PCP and spray foam installer within one week of discharge. Please take steroid as 2 pills for 2 days starting tomorrow and one pills for the two days after. Diet Continue normal diet: Yes Activity Full Activity/No Limits: Yes Acute Coronary Syndrome Inclusion Criteria At DC or during hospital stay patient has or had the following: ACS DIAGNOSIS No Discharge Core Measures Meds if any: Prescribed or Continued at Discharge Meds if any: NOT Prescribed or Continued at Discharge Congestive Heart Failure Inclusion Criteria At DC or during hospital stay patient has or had the following: CHF DIAGNOSIS No Discharge Core Measures Meds if any: Prescribed or Continued at Discharge Meds if any: NOT Prescribed or Continued at Discharge Cerebrovascular accident Inclusion Criteria At DC or during hospital stay patient has or had the following: CVA/TIA Diagnosis No Discharge Core Measures Meds if any: Prescribed or Continued at Discharge Meds if any: NOT Prescribed or Continued at Discharge Venous thromboembolism Inclusion Criteria VTE Diagnosis No VTE Type NONE VTE Confirmed by (Test) NONE Discharge Core Measures - Per Current guidelines, there needs to be overlap - treatment for the first 5 days of Warfarin therapy. - If discharged on Warfarin prior to 5 days of - overlap therapy, the patient will need to be - assessed for post discharge needs including - *Post discharge parental anticoagulation - *Warfarin and/or parental anticoagulation education - *Follow up date to check INR post discharge At least 5 days overlap therapy as Inpatient No Meds if any: Prescribed or Continued at Discharge Note: Overlap Therapy is Warfarin and Anticoagulant Meds if any: NOT Prescribed or Continued at Discharge
[2017-08-11 22:46] VITALS: BP 104/76
[2017-08-12 07:06] VITALS: BP 110/68
[2017-08-12 08:28] LABS: ABSOLUTE BASOPHIL COUNT 0 /CUMM (0.0-0.2); ABSOLUTE EOSINOPHIL COUNT 0 /CUMM (0.0-0.7); ABSOLUTE GRANULOCYTE CT 16.3 /CUMM (1.4-6.5); ABSOLUTE LYMPH COUNT 0.9 /CUMM (1.2-3.4); ABSOLUTE MONOCYTE COUNT 0.5 /CUMM (0.10-0.60); BASOPHIL % 0 % (0.0-2.0); EOSINOPHIL % 0 % (0-5); GRANULOCYTE % 91.9 % (42.2-75.2); HEMATOCRIT 36.8 % (37-47); MEAN CORPUSCULAR HGB 30.6 PG (27.0-31.0); MEAN CORPUSCULAR VOLUME 92.6 FL (81.0-99.0); MEAN PLATELET VOLUME 9.3 FL (7.4-10.4); PLATELET COUNT 261 /CUMM (130-400); RBC DISTRIBUTION WIDTH 13.8 % (11.5-14.5); RED BLOOD CELL CT 3.97 /CUMM (4.20-5.40)
--- NOTE | 2017-08-12 09:06 | PN- Housestaff ---
Anjum HARDING,Isinil 08/12/17 0906: Subjective Follow-up For: COPD exacerbation Tele-Events Since Last Visit: NSR without any events Subjective: Afebrile, hemodynamically stable, saturating mid 90s on 2 L NC. She reports improvement of her shortness breath. She looks relaxed and comfortable and denies any current active complaints. Review of Systems Constitutional: Reports: no symptoms, see HPI. Objective Last 24 Hrs of Vital Signs/I&O Vital Signs Date Time Temp Pulse Resp B/P B/P Pulse O2 O2 Flow FiO2 Mean Ox Delivery Rate 08/12 0955 95 Nasal 2.0L Cannula 08/12 0841 88 110/68 08/12 0800 94 Nasal 2.0L Cannula 08/12 0706 98.0 88 18 110/68 96 Nasal 2.0L Cannula 08/12 0000 Nasal 2.0L Cannula 08/11 2246 98.7 84 18 104/76 96 Nasal Cannula 08/11 2052 98 102/50 08/11 1955 97 Nasal 2.0L Cannula 08/11 1658 99.0 22 08/11 1600 Nasal 2.0L Cannula 08/11 1426 97.2 92 20 106/60 98 Nasal Cannula Intake & Output 08/12 1600 08/12 0800 08/12 0000 Intake Total 120 320 Output Total 650 Balance -530 320 Intake, IV 20 Intake, Oral 120 300 Output, Urine 650 Patient 57.805 kg Weight Weight Bed scale Measurement Method Physical Exam General Appearance: Alert, Oriented X3, Cooperative, No Acute Distress Skin: No Rashes HEENT: Atraumatic, PERRLA, EOMI, Mucous Membr. moist/pink Neck: No JVD Cardiovascular: Regular Rate, Normal S1, Normal S2, 2/6 systolic murmur Lungs: bilateral basal rhonchi with mild diffuse end expiratory wheezing, significantly improved compared to Sunday Abdomen: Soft, No Tenderness Neurological: Normal Speech Extremities: No Clubbing, No Cyanosis, No Edema Current Medications: Current Medications Sig/Tata Start time Last Medication Dose Route Stop Time Status Admin Acetaminophen 650 MG .STK-MED ONE 08/11 2053 DC PO 08/11 2054 Acetaminophen 650 MG Q6P PRN 08/10 599 AC 08/11 PO 2054 Acetaminophen 1,000 MG Q6P PRN 08/10 599 AC IV Albuterol Sulfate 3 ML BID 08/10 2099 AC 08/12 INH 0956 Alendronate Sodium 70 MG QTHURS@0700 08/16 0700 AC PO Atorvastatin Calcium 40 MG 1700 08/10 1700 AC 08/11 PO 1631 Azithromycin 500 MG DAILY 08/10 09 AC 08/12 Sodium Chloride 250 ML IV 08/14 0959 0843 Diltiazem HCl 30 MG BID 08/10 09 AC 08/12 PO 0841 Enoxaparin Sodium 40 MG DAILY 08/10 09 AC 08/12 SC 0850 Guaifenesin 600 MG Q12 08/10 0900 AC 08/12 PO 0850 Levothyroxine Sodium 0.1 MG DAILY AC 08/10 0700 AC 08/12 PO 0611 Methylprednisolone 40 MG DAILY 08/12 0900 CAN IV Methylprednisolone 40 MG Q12 08/11 2100 DC 08/11 IV 08/12 0000 2052 Polyethylene Glycol 17 GM AT BEDTIME NEED.. 08/10 0600 AC PO Prednisone 40 MG DAILY 08/12 09 CAN PO Prednisone 40 MG DAILY 08/12 0900 AC 08/12 PO 0850 Tiotropium [place] 1 PUF DAILY 08/10 09 AC 08/12 INH 0844 Last 24 Hrs of Lab/Farzad Results Last 24 Hrs of Labs/Mics: Laboratory Tests 08/12/17 0630: Anion Gap 9, Estimated GFR > 60, BUN/Creatinine Ratio 41.4 H, CBC w Diff NO MAN DIFF REQ, RBC 3.97 L, MCV 92.6, MCH 30.6, MCHC 33.0, RDW 13.8, MPV 9.3, Gran % 91.9 H, Lymphocytes % 5.0 L, Monocytes % 3.1, Eosinophils % 0, Basophils % 0, Absolute Granulocytes 16.3 H, Absolute Lymphocytes 0.9 L, Absolute Monocytes 0.5, Absolute Eosinophils 0, Absolute Basophils 0 Assessment/Plan Assessment: 84 YO F with a PMH of COPD (on home O2, 2L), hypothyroidism, hyperlipidemia, HFpEF, dementia who presented to ED with chief complaint of acute progressive worsening of shortness of breath. Problem list * Chronic hypoxic respiratory failure with acute COPD exacerbation * hypothyroidism * hyperlipidemia * HFPEF Plan: * Continuous telemetry monitoring * Continue prednisone 40 mg daily quick taper * We will continue 5 days of azithromycin * TRC, jaxons PRN * We will taper oxygen as tolerated * We will instruct the patient to follow with wellness Center * Pending echo * DVT Prophylaxis: SC heparin x 3 * Diet: heart healthy * Code: Full Code Problem List: 1. COPD exacerbation Pain Ratin Pain Location: na Pain Goal: Remain pain free Pain Plan: See A&P Tomorrow's Labs & Rationales: stable no need for labs Garo Del Toro MD 08/12/17 2006: Attending MD Review Statement Attending Statement Attending MD Statement: examined this patient, discuss w/resident/PA/DISTRIBUTOR OPERATOR, agreed w/resident/PA/DISTRIBUTOR OPERATOR, discussed with family, reviewed EMR data (avail), amended to note Attending Assessment/Plan: The patient was seen and discussed with house staff. Appreciate Cardiology follow-up. Continue current regimen and await ECHO.
[2017-08-12 10:11] LABS: WHITE BLOOD CELL COUNT 17.8 /CUMM (4.8-10.8)
--- NOTE | 2017-08-12 11:09 | PN- Pulmonary ---
Subjective HPI/Critical Care Issues: pt seen and examined reduced wheezing improved dyspnea no leg edema no chest pain no abdominal pain, nausea/vomiting no fevers Objective Current Medications: Current Medications Sig/Tata Start time Last Medication Dose Route Stop Time Status Admin Acetaminophen 650 MG .STK-MED ONE 08/11 2053 DC PO 08/11 2054 Acetaminophen 650 MG Q6P PRN 08/10 0600 AC 08/11 PO 205 Acetaminophen 1,000 MG Q6P PRN 08/10 0600 AC IV Albuterol Sulfate 3 ML BID 08/10 2100 AC 08/12 INH 0956 Alendronate Sodium 70 MG QTHURS@0700 08/16 0700 AC PO Atorvastatin Calcium 40 MG 1700 08/10 1700 AC 08/11 PO 1631 Azithromycin 500 MG DAILY 08/10 09 AC 08/12 Sodium Chloride 250 ML IV 08/14 0959 0843 Diltiazem HCl 30 MG BID 08/10 0900 AC 08/12 PO 0841 Enoxaparin Sodium 40 MG DAILY 08/10 0900 AC 08/12 SC 0850 Guaifenesin 600 MG Q12 08/10 0900 AC 08/12 PO 0850 Levothyroxine Sodium 0.1 MG DAILY AC 08/10 0700 AC 08/12 PO 0611 Methylprednisolone 40 MG DAILY 08/12 0900 CAN IV Methylprednisolone 40 MG Q12 08/11 2100 DC 08/11 IV 08/12 0000 2051 Polyethylene Glycol 17 GM AT BEDTIME NEED.. 08/10 0600 AC PO Prednisone 40 MG DAILY 08/12 0900 CAN PO Prednisone 40 MG DAILY 08/12 0900 AC 08/12 PO 0850 Tiotropium [place] 1 PUF DAILY 08/10 0900 AC 08/12 INH 0844 Vital Signs & I&O Last 24 Hrs of Vitals and I&O: Vital Signs Date Time Temp Pulse Resp B/P B/P Pulse O2 O2 Flow FiO2 Mean Ox Delivery Rate 08/12 0955 95 Nasal 2.0L Cannula 08/12 0841 88 110/68 08/12 0800 94 Nasal 2.0L Cannula 08/12 0706 98.0 88 18 110/68 96 Nasal 2.0L Cannula 08/12 0000 Nasal 2.0L Cannula 08/116 98.7 84 18 104/76 96 Nasal Cannula 08/12 2051 98 102/50 08/11 1954 97 Nasal 2.0L Cannula 08/11 1658 99.0 22 08/11 1600 Nasal 2.0L Cannula 08/11 1426 97.2 92 20 106/60 98 Nasal Cannula Intake & Output 08/12 1600 08/12 0800 08/12 0000 Intake Total 120 320 Output Total 650 Balance -530 320 Intake, IV 20 Intake, Oral 120 300 Output, Urine 650 Patient 127 lb Weight Weight Bed scale Measurement Method Exam Other Physical Findings: gen awake and alert head/neck oxygen via nasal cannula cvs s1, s2 lungs b/l rhonchi abd soft, bs+ ext - no edema Results Last 24 Hrs of Lab Results: Laboratory Tests 08/12/17 0630: Anion Gap 9, Estimated GFR > 60, BUN/Creatinine Ratio 41.4 H, CBC w Diff NO MAN DIFF REQ, RBC 3.97 L, MCV 92.6, MCH 30.6, MCHC 33.0, RDW 13.8, MPV 9.3, Gran % 91.9 H, Lymphocytes % 5.0 L, Monocytes % 3.1, Eosinophils % 0, Basophils % 0, Absolute Granulocytes 16.3 H, Absolute Lymphocytes 0.9 L, Absolute Monocytes 0.5, Absolute Eosinophils 0, Absolute Basophils 0 Impression/Plan Impression/Plan Impression/Plan: Impression 87 year old woman * chronic hypoxemic respiratory failure and COPD, now with an acute exacerbation of COPD likely secondary to environmental exposure (dust/humidity) Plan -titrate fio2 to a goal of >92% -solumedrol discontinue, begin prednisone 40mg x 2 days, 30mg x 2 days, 20mg x 2 days, 10mg x 2 days then stop -trc/nebs -zithromax has been started, can use for 5 days for anti-inflammatory properties -DC planning within 24 hours -ambulate/oob DVT prophylaxis at all times
--- NOTE | 2017-08-12 11:55 | PN- Cardiology ---
Subjective Subjective: Shortness of breath is improving. No chest pain. No palpitations. No diaphoresis. No nausea or vomiting. No lightheadedness or dizziness. Objective Vital Signs and I&Os Vital Signs Date Time Temp Pulse Resp B/P B/P Pulse O2 O2 Flow FiO2 Mean Ox Delivery Rate 08/12 0955 95 Nasal 2.0L Cannula 08/12 0841 88 110/68 08/12 0800 94 Nasal 2.0L Cannula 08/12 0706 98.0 88 18 110/68 96 Nasal 2.0L Cannula 08/12 0000 Nasal 2.0L Cannula 08/11 2246 98.7 84 18 104/76 96 Nasal Cannula 08/11 205 98 102/50 08/11 1955 97 Nasal 2.0L Cannula 08/11 1658 99.0 22 08/11 1600 Nasal 2.0L Cannula 08/11 1426 97.2 92 20 106/60 98 Nasal Cannula Intake & Output 08/12 1600 08/12 0800 08/12 0000 08/11 1600 08/11 0800 08/11 0000 Intake Total 120 320 500 Output Total 250 650 450 200 Balance -250 -530 320 50 -200 Intake, IV 20 Intake, Oral 120 300 500 Number 1 1 Bowel Movements Output, Urine 250 650 450 200 Patient 127 lb 127 lb Weight Weight Bed scale Measurement Method Physical Exam: Gen: NAD HEENT: normal Lungs: clear to auscultation, normal resp. effort Heart: RRR, S1, S2, 2 out of 6 systolic murmur Abdomen: Soft, nontender, no masses Extremities: No clubbing, cyanosis, or edema. Neuro: Alert and oriented x 3, cranial nerves intact Current Medications: Current Medications Sig/Tata Start time Last Medication Dose Route Stop Time Status Admin Acetaminophen 650 MG .STK-MED ONE 08/11 2053 DC PO 08/11 2054 Acetaminophen 650 MG Q6P PRN 08/10 599 AC 08/11 PO 2054 Acetaminophen 1,000 MG Q6P PRN 08/10 599 AC IV Albuterol Sulfate 3 ML BID 08/10 2100 AC 08/12 INH 0956 Alendronate Sodium 70 MG QTHURS@0700 08/16 0700 AC PO Atorvastatin Calcium 40 MG 1700 08/10 1700 AC 08/11 PO 1631 Azithromycin 500 MG DAILY 08/10 09 AC 08/12 Sodium Chloride 250 ML IV 08/14 0959 0843 Diltiazem HCl 30 MG BID 08/10 0900 AC 08/12 PO 0841 Enoxaparin Sodium 40 MG DAILY 08/10 0900 AC 08/12 SC 0850 Guaifenesin 600 MG Q12 08/10 0900 AC 08/12 PO 0850 Levothyroxine Sodium 0.1 MG DAILY AC 08/10 0700 AC 08/12 PO 0611 Methylprednisolone 40 MG DAILY 08/12 0900 CAN IV Methylprednisolone 40 MG Q12 08/11 2100 DC 08/11 IV 08/12 0000 2051 Polyethylene Glycol 17 GM AT BEDTIME NEED.. 08/10 06 AC PO Prednisone 40 MG DAILY 08/12 09 CAN PO Prednisone 40 MG DAILY 08/12 0900 AC 08/12 PO 0850 Tiotropium [place] 1 PUF DAILY 08/10 09 AC 08/12 INH 0844 Results Last 48 Hrs of Labs/Mics: Laboratory Tests 08/12/17 0630: Anion Gap 9, Estimated GFR > 60, BUN/Creatinine Ratio 41.4 H, CBC w Diff NO MAN DIFF REQ, RBC 3.97 L, MCV 92.6, MCH 30.6, MCHC 33.0, RDW 13.8, MPV 9.3, Gran % 91.9 H, Lymphocytes % 5.0 L, Monocytes % 3.1, Eosinophils % 0, Basophils % 0, Absolute Granulocytes 16.3 H, Absolute Lymphocytes 0.9 L, Absolute Monocytes 0.5, Absolute Eosinophils 0, Absolute Basophils 0 08/11/17 0615: Anion Gap 12, Estimated GFR > 60, BUN/Creatinine Ratio 36.3 H, CBC w Diff NO MAN DIFF REQ, RBC 4.11 L, MCV 92.0, MCH 29.8, MCHC 32.4 L, RDW 13.9, MPV 9.3, Gran % 90.0 H, Lymphocytes % 6.2 L, Monocytes % 3.8, Eosinophils % 0, Basophils % 0, Absolute Granulocytes 12.9 H, Absolute Lymphocytes 0.9 L, Absolute Monocytes 0.5, Absolute Eosinophils 0, Absolute Basophils 0 08/10/17 1855: Anion Gap 11, Estimated GFR 53 L, BUN/Creatinine Ratio 31.0 H, Magnesium 1.8 08/10/17 1530: Troponin I < 0.01 Assessment/Plan Assessment/Plan Assessment: 1. COPD exacerbation 2. History of right heart failure/cor pulmonale 3. History of hyperlipidemia 4. Hypothyroidism 5. No evidence of acute heart failure Recommendations: * Continue current management as per the medical and pulmonary team * Echocardiogram pending * Further plans after the echocardiogram. Continue telemetry? No
[2017-08-12 14:08] VITALS: BP 126/66
[2017-08-12 21:57] VITALS: BP 130/72
[2017-08-13 06:52] VITALS: BP 128/78
--- NOTE | 2017-08-13 08:10 | PN- Housestaff ---
Anjum HARDING,Isneil 08/13/17 0810: Subjective Follow-up For: COPD exacerbation Subjective: Afebrile, hemodynamically stable, saturating mid 90s on 2 L NC. She reports improvement of her shortness breath. She complained of mild epigastric discomfort after eating breakfast with mild nausea. Review of Systems Constitutional: Reports: see HPI. Objective Last 24 Hrs of Vital Signs/I&O Vital Signs Date Time Temp Pulse Resp B/P B/P Pulse O2 O2 Flow FiO2 Mean Ox Delivery Rate 08/13 1053 95 Nasal 1.0L Cannula 08/13 0804 80 128/78 08/13 0800 94 Nasal 2.0L Cannula 08/13 0652 97.7 80 20 128/78 96 Nasal Cannula 08/13 0000 Nasal 2.0L Cannula 08/12 2157 98.5 92 20 130/72 94 Nasal Cannula 08/12 2111 95 Nasal 2.0L Cannula 08/12 2056 90 130/72 08/12 1600 Nasal 2.0L Cannula 08/12 1408 98.1 92 20 126/66 98 Nasal Cannula Intake & Output 08/13 1600 08/13 0800 08/13 0000 Intake Total 20 450 Output Total 200 300 Balance -200 -280 450 Intake, Oral 20 450 Number 1 Bowel Movements Output, Urine 200 300 Patient 58.513 kg Weight Physical Exam General Appearance: Alert, Oriented X3, Cooperative, No Acute Distress Skin: No Rashes HEENT: Atraumatic, PERRLA, EOMI, Mucous Membr. moist/pink Neck: Supple, No JVD Cardiovascular: Regular Rate, Normal S1, Normal S2, No Murmurs Lungs: Clear to Auscultation, Normal Air Movement Abdomen: Soft, No Tenderness Neurological: Normal Speech Extremities: No Clubbing, No Cyanosis, No Edema Current Medications: Current Medications Sig/Tata Start time Last Medication Dose Route Stop Time Status Admin Acetaminophen 650 MG .STK-MED ONE 08/12 2101 DC PO 08/12 2102 Acetaminophen 650 MG Q6P PRN 08/10 599 AC 08/12 PO 210 Acetaminophen 1,000 MG Q6P PRN 08/10 599 AC IV Albuterol Sulfate 3 ML BID 08/10 2100 AC 08/13 INH 1048 Alendronate Sodium 70 MG QTHURS@0700 08/16 0700 AC PO Atorvastatin Calcium 40 MG 1700 08/10 1700 AC 08/12 PO 1631 Azithromycin 500 MG DAILY 08/10 09 AC 08/13 Sodium Chloride 250 ML IV 08/14 0959 0804 Diltiazem HCl 30 MG BID 08/10 09 AC 08/13 PO 0804 Enoxaparin Sodium 40 MG DAILY 08/10 09 AC 08/13 SC 0812 Guaifenesin 600 MG Q12 08/10 0900 AC 08/13 PO 0804 Levothyroxine Sodium 0.1 MG DAILY AC 08/10 0700 AC 08/13 PO 0552 Melatonin 5 MG AT BEDTIME 08/12 2100 AC 08/12 PO 2103 Ondansetron HCl 4 MG ONCE ONE 08/13 1030 DC 08/13 IV 08/13 1031 1049 Pantoprazole Sodium 40 MG ONCE ONE 08/13 1030 DC 08/13 IV 08/13 1031 1049 Polyethylene Glycol 17 GM AT BEDTIME NEED.. 08/10 0600 AC PO Prednisone 40 MG DAILY 08/12 09 AC 08/13 PO 0804 Tiotropium [place] 1 PUF DAILY 08/10 899 AC 08/13 INH 0804 Assessment/Plan Assessment: 84 YO F with a PMH of COPD (on home O2, 2L), hypothyroidism, hyperlipidemia, HFpEF, dementia who presented to ED with chief complaint of acute progressive worsening of shortness of breath and was found to be in COPD exacerbation. There are no signs or symptoms of CHF exacerbation. Echo did not show significant changes. Problem list * Chronic hypoxic respiratory failure with acute COPD exacerbation * hypothyroidism * hyperlipidemia * HFPEF * Mild epigastric discomfort associated with nausea Plan: * Continuous telemetry monitoring, until discharge * Continue prednisone 40 mg today, then 30mg X2, 20mg X2, 10mg X2, then stop * We will continue 5 days of azithromycin, last does tomorrow * TRC, nebs PRN * continue home does of o2 (2 L) * We will instruct the patient to follow with wellness Center * We will give 1 dose of PPI and Zofran. * DVT Prophylaxis: SC heparin x 3 * Diet: heart healthy * Code: Full Code Problem List: 1. COPD exacerbation Pain Ratin Pain Location: epigastric Pain Goal: Remain pain free Pain Plan: See A&P Tomorrow's Labs & Rationales: non need as pt is improving and stable Javi Russ 08/13/17 1328: Attending MD Review Statement Attending Statement Attending MD Statement: examined this patient, discuss w/resident/PA/UNIT DIRECTOR, agreed w/resident/PA/UNIT DIRECTOR, discussed with family, reviewed EMR data (avail), discussed with nursing, discussed with case mgmt, reviewed images, amended to note Attending Assessment/Plan: Patient admitted to COPD exaecrbation and chronic hypoxemic respiratroy failure. Patient is being treated by steroid taper. On discharge she was back to baseline oxygen which is 2 L nasal cannula. The patient will be instructed to follow with her talent acquisition partner and PCP as an outpatient. We will also referral to follow with the wellness Center.
--- NOTE | 2017-08-13 08:42 | PN- Pulmonary ---
Subjective HPI/Critical Care Issues: Patient continues to have mild shortness of breath she is on chronic oxygen at home Objective Current Medications: Current Medications Sig/Tata Start time Last Medication Dose Route Stop Time Status Admin Acetaminophen 650 MG .STK-MED ONE 08/12 2101 DC PO 08/12 2102 Acetaminophen 650 MG Q6P PRN 08/10 0600 AC 08/12 PO 210 Acetaminophen 1,000 MG Q6P PRN 08/10 0600 AC IV Albuterol Sulfate 3 ML BID 08/10 2100 AC 08/12 INH 2109 Alendronate Sodium 70 MG QTHURS@0700 08/16 0700 AC PO Atorvastatin Calcium 40 MG 1700 08/10 1700 AC 08/12 PO 1631 Azithromycin 500 MG DAILY 08/10 09 AC 08/13 Sodium Chloride 250 ML IV 08/14 0959 0804 Diltiazem HCl 30 MG BID 08/10 0900 AC 08/13 PO 0804 Enoxaparin Sodium 40 MG DAILY 08/10 0900 AC 08/13 SC 0812 Guaifenesin 600 MG Q12 08/10 0900 AC 08/13 PO 0804 Levothyroxine Sodium 0.1 MG DAILY AC 08/10 0700 AC 08/13 PO 0552 Melatonin 5 MG AT BEDTIME 08/12 2100 AC 08/12 PO 2103 Polyethylene Glycol 17 GM AT BEDTIME NEED.. 08/10 0600 AC PO Prednisone 40 MG DAILY 08/12 0900 AC 08/13 PO 0804 Tiotropium [place] 1 PUF DAILY 08/10 0900 AC 08/13 INH 0804 Vital Signs & I&O Last 24 Hrs of Vitals and I&O: Vital Signs Date Time Temp Pulse Resp B/P B/P Pulse O2 O2 Flow FiO2 Mean Ox Delivery Rate 08/13 0804 80 128/78 08/13 0652 97.7 80 20 128/78 96 Nasal Cannula 08/13 0000 Nasal 2.0L Cannula 08/12 2156 98.5 92 20 130/72 94 Nasal Cannula 08/12 2110 95 Nasal 2.0L Cannula 08/126 90 130/72 08/12 1600 Nasal 2.0L Cannula 08/12 1408 98.1 92 20 126/66 98 Nasal Cannula 08/12 0955 95 Nasal 2.0L Cannula 08/12 0841 88 110/68 Intake & Output 08/13 1600 08/13 0800 08/13 0000 Intake Total 20 450 Output Total 300 Balance -280 450 Intake, Oral 20 450 Number 1 Bowel Movements Output, Urine 300 Patient 129 lb Weight Since saturation 2 L 96% exam for chest shows occasional expiratory wheezing exam shows regular S1 and S2 without murmurs Impression/Plan Impression/Plan Impression/Plan: 87-year-old admitted with exacerbation of COPD which is slowly improving Recommendations: Continue slow prednisone taper. Taper FiO2 his saturations allow. Mobilize out of bed. Evaluate for need for short-term rehabilitation
--- NOTE | 2017-08-13 10:38 | ECHOCARDIOGRAM REPORT ---
SHRUTHI WOLFE Age: 87 : 1930 Gender: F Exam Date: 08/12/2017 09:05 Exam Location: 1 [address] Ht (in): 61 Wt (lb): 127 BSA: 1.58 BP: 110 / 68 Ordering Physician: Yumiko Boyd MD Referring Physician: Rob Castañeda MD Technologist: Starla Jason [facility] Room Number: 173 Indications: HEART FAILURE Rhythm: Sinus Technical Quality: Technically difficult study FINDINGS Left Ventricle Normal size left ventricle. Left ventricular ejection fraction is estimated at >55%. No obvious regional wall motion abnormalities. Right Ventricle Normal right ventricular size and function. Right Atrium Normal right atrial size. Left Atrium Normal left atrial size. Mitral Valve Mitral valve thickened. Aortic Valve Diffuse thickening (sclerosis) of the aortic valve cusps without reduced excursion. No aortic stenosis. No aortic regurgitation. Tricuspid Valve Tricuspid valve not well visualized, grossly normal. Trace tricuspid regurgitation. Pulmonic Valve Pulmonic valve not well visualized, grossly normal. Pericardium No pericardial effusion. Great Vessels Normal size aortic root. CONCLUSIONS Normal size left ventricle. Left ventricular ejection fraction is estimated at >55%. No obvious regional wall motion abnormalities. Trace tricuspid regurgitation. Technically difficult study. Zacarias Wagner M.D. (Electronically Signed) Final Date: 13 Aug 2017 10:37 MEASUREMENTS (Male / Female) Normal Values 2D ECHO LV Diastolic Diameter PLAX 3.9 cm 4.2 - 5.9 / 3.9 - 5.3 cm LV Systolic Diameter PLAX 2.6 cm 2.1 - 4.0 cm LV Fractional Shortening PLAX 33.3 % 25 - 46 % LV Ejection Fraction 2D Teich 62.7 % IVS Diastolic Thickness 1.3 cm LVPW Diastolic Thickness 1.3 cm LV Relative Wall Thickness 0.7 RV Internal Dim ED PLAX 3.2 cm 1.9 - 3.8 cm LVOT Diameter 2.1 cm Aortic Root Diameter 3.2 cm LA Systolic Diameter LX 3.3 cm 3.0 - 4.0 / 2.7 - 3.8 cm LA Volume 27.0 cm 18 - 58 / 22 - 52 cm Ascending Aorta Diameter 3.6 cm DOPPLER AV Peak Velocity 160.0 cm/s AV Peak Gradient 10.2 mmHg AV Mean Velocity 99.2 cm/s AV Mean Gradient 5.0 mmHg AV Velocity Time Integral 29.4 cm LVOT Peak Velocity 143.0 cm/s LVOT Peak Gradient 8.2 mmHg LVOT Mean Velocity 91.4 cm/s LVOT Mean Gradient 4.0 mmHg LVOT Velocity Time Integral 28.0 cm LVOT Stroke Volume 97.0 cm AV Area Cont Eq vti 3.3 cm AV Area Cont Eq pk 3.1 cm MV Peak Velocity 95.8 cm/s MV Peak Gradient 3.7 mmHg MV Mean Velocity 59.8 cm/s MV Mean Gradient 2.0 mmHg Mitral E Point Velocity 110.0 cm/s Mitral A Point Velocity 119.0 cm/s Mitral E to A Ratio 0.9 MV PHT Velocity 82.1 cm/s MV Deceleration [place] 370.0 cm/s MV Pressure Half Time 66.6 ms MV Area PHT 3.3 cm MV Deceleration Time 211.0 ms PV Peak Velocity 114.0 cm/s PV Peak Gradient 5.2 mmHg PV Mean Velocity 78.3 cm/s PV Mean Gradient 3.0 mmHg PV Velocity Time Integral 19.9 cm LV E' Lateral Velocity 10.9 cm/s Mitral E to LV E' Lateral Ratio 10.1 LV E' Septal Velocity 8.5 cm/s Mitral E to LV E' Septal Ratio 13.0
--- NOTE | 2017-08-13 11:24 | Discharge Summary ---
Visit Information Visit Dates Admission Date: 08/10/17 Discharge Date: 08/15/17 Hospital Course Course Attending Physician: Javi Russ MD Primary Care Physician: Kerwin Deshpande MD Hospital Course: 84/F with a PMH of COPD (on home O2, 2L), hypothyroidism, hyperlipidemia, HFpEF, dementia who presented to ED with CC of acute progressive dyspnea. The patient was found to have wheezing, decreased air entry, mild worsening of baseline white sputum productive cough, and had increased oxygen requirement. She was diagnosed with COPD exacerbation and was started on 4 L oxygen, IV steroid was given followed by oral taper, nebs as needed, and IV azithromycin for a total 5 days was also given. Her symptoms significantly improved and she will be discharged on prednisone taper. On discharge she was back to baseline oxygen which is 2 L nasal cannula. The patient will be instructed to follow with her material preparation worker and PCP as an outpatient. We will also referral to follow with the [facility]. There was no sign or symptoms suggestive of CHF exacerbation, However echocardiogram was done, did not show any significant changes and the results can be seen below. We continued the rest of home medications. On discharge she will be on the same exact medications she was admitted with plus prednisone for 4 days and omeprazole for a month. Allergies: Coded Allergies: codeine (Severe, MY HEAD FELT LIKE IT WAS GOING TO EXPLODE 06/21/17) Pertinent Lab Results: SERVICE DATE: 08/[id number] TYPE: CARD - ECHOCARDIOGRAM SHRUTHI WOLFE Age: 87 : 1930 Gender: F Exam Date: 08/12/2017 09:05 Exam Location: [place] Ht (in): 61 Wt (lb): 127 BSA: 1.58 BP: 110 / 68 Indications: HEART FAILURE Rhythm: Sinus Technical Quality: Technically difficult study FINDINGS Left Ventricle Normal size left ventricle. Left ventricular ejection fraction is estimated at >55%. No obvious regional wall motion abnormalities. Right Ventricle Normal right ventricular size and function. Right Atrium Normal right atrial size. Left Atrium Normal left atrial size. Mitral Valve Mitral valve thickened. Aortic Valve Diffuse thickening (sclerosis) of the aortic valve cusps without reduced excursion. No aortic stenosis. No aortic regurgitation. Tricuspid Valve Tricuspid valve not well visualized, grossly normal. Trace tricuspid regurgitation. Pulmonic Valve Pulmonic valve not well visualized, grossly normal. Pericardium No pericardial effusion. Great Vessels Normal size aortic root. CONCLUSIONS Normal size left ventricle. Left ventricular ejection fraction is estimated at >55%. No obvious regional wall motion abnormalities. Trace tricuspid regurgitation. Technically difficult study. Zacarias Wagner M.D. (Electronically Signed) Final Date: 13 Aug 2017 10:37 MEASUREMENTS (Male / Female) Normal Values 2D ECHO LV Diastolic Diameter PLAX 3.9 cm 4.2 - 5.9 / 3.9 - 5.3 cm LV Systolic Diameter PLAX 2.6 cm 2.1 - 4.0 cm LV Fractional Shortening PLAX 33.3 % 25 - 46 % LV Ejection Fraction 2D Teich 62.7 % IVS Diastolic Thickness 1.3 cm LVPW Diastolic Thickness 1.3 cm LV Relative Wall Thickness 0.7 RV Internal Dim ED PLAX 3.2 cm 1.9 - 3.8 cm LVOT Diameter 2.1 cm Aortic Root Diameter 3.2 cm LA Systolic Diameter LX 3.3 cm 3.0 - 4.0 / 2.7 - 3.8 cm LA Volume 27.0 cm 18 - 58 / 22 - 52 cm Ascending Aorta Diameter 3.6 cm DOPPLER AV Peak Velocity 160.0 cm/s AV Peak Gradient 10.2 mmHg AV Mean Velocity 99.2 cm/s AV Mean Gradient 5.0 mmHg AV Velocity Time Integral 29.4 cm LVOT Peak Velocity 143.0 cm/s LVOT Peak Gradient 8.2 mmHg LVOT Mean Velocity 91.4 cm/s LVOT Mean Gradient 4.0 mmHg LVOT Velocity Time Integral 28.0 cm LVOT Stroke Volume 97.0 cm AV Area Cont Eq vti 3.3 cm AV Area Cont Eq pk 3.1 cm MV Peak Velocity 95.8 cm/s MV Peak Gradient 3.7 mmHg MV Mean Velocity 59.8 cm/s MV Mean Gradient 2.0 mmHg Mitral E Point Velocity 110.0 cm/s Mitral A Point Velocity 119.0 cm/s Mitral E to A Ratio 0.9 MV PHT Velocity 82.1 cm/s MV Deceleration [place] 370.0 cm/s MV Pressure Half Time 66.6 ms MV Area PHT 3.3 cm MV Deceleration Time 211.0 ms PV Peak Velocity 114.0 cm/s PV Peak Gradient 5.2 mmHg PV Mean Velocity 78.3 cm/s PV Mean Gradient 3.0 mmHg PV Velocity Time Integral 19.9 cm LV E' Lateral Velocity 10.9 cm/s Mitral E to LV E' Lateral Ratio 10.1 LV E' Septal Velocity 8.5 cm/s Mitral E to LV E' Septal Ratio 13.0 Disposition Summary Disposition Principal Diagnosis: COPD exacerbation Additional Diagnosis: Hypothyroidism CHF Discharge Disposition: SNF Discharge Instructions General Discharge Information Code Status: Full Code Patient's Diet: Heart healthy diet Patient's Activity: As tolerated Follow-Up Instructions/Appts: Please follow with material preparation worker with a 1-2 weeks Please follow with primary care doctor with a 1-2 weeks Please take prednisone taper as prescribed Please start following with [facility] as needed Medications at Discharge Discharge Medications: Continue taking these medications: Pravastatin Sodium (Pravastatin Sodium) 40 MG TABLET 1 Tablet ORAL Every night Comments: given Lipitor in hospital on 08/14/17 @ 1627 Levothyroxine Sodium (Levothyroxine Sodium) 100 MCG TABLET 1 Tablet ORAL DAILY Comments: given 08/15/17 @ 0502 Alendronate Sodium (Alendronate Sodium) 70 MG TABLET 1 Tablet ORAL Once a Week Instructions: in the morning, at least 30 minutes before the first food, beverage, or medication of the day Comments: not given in hospital Albuterol Sulfate (Albuterol Sulfate) 1.25 MG/3 ML VIAL.NEB 1 Vial Inhale Solution EVERY 4-6 HOURS as needed for COPD Comments: given 08/15/17 @ 0921 Umeclidinium [place] (Incruse Ellipta) 62.5 MCG/ACTUATION BLST.W.DEV 62.5 Milligram Inhale through mouth DAILY Comments: not given Diltiazem HCl (Diltiazem HCl) 30 MG TABLET 1 Tablet ORAL TWICE DAILY Comments: given 08/15/17 @ 0932 Fluticasone/Salmeterol (Advair 250-50 Diskus) 250 MCG-50 MCG/DOSE BLST.W.DEV 1 Puff Inhale through mouth TWICE DAILY Comments: not given in hospital Start taking the following new medications: Prednisone (Prednisone) 10 MG TABLET 1 Tablet ORAL DAILY Qty = 6 No Refills Instructions: take 2 pills for 2 days then take 1 pill for 2 days Comments: given 08/15/17 @ 1225 Omeprazole (Omeprazole) 20 MG CAPSULE.DR 40 Milligram ORAL DAILY BEFORE BREAKFAST Qty = 30 No Refills Instructions: please take until follow with PCP Comments: given 08/15/17 @ 2246 Copies To: Lashawn HARDING,Marcus Monahan; Jeramy HARDING,Kerwin Calle Attending MD Review Statement Documenting Attending: Jeb HARDING,Javi
[2017-08-13 14:25] VITALS: BP 126/74
[2017-08-13 22:00] VITALS: BP 112/60
[2017-08-14 06:25] VITALS: BP 150/80
--- NOTE | 2017-08-14 07:49 | PN- Housestaff ---
Anjum HARDING,Ismsil 08/14/17 0748: Subjective Follow-up For: COPD exacerbation Subjective: Afebrile, hemodynamically stable, saturating mid 90s on 2 L NC. She reports improvement of her shortness breath. The patient reports a new onset feet itchy rash that started for the first time this morning. She denies any other active complains. Review of Systems Constitutional: Reports: see HPI. Objective Last 24 Hrs of Vital Signs/I&O Vital Signs Date Time Temp Pulse Resp B/P B/P Pulse O2 O2 Flow FiO2 Mean Ox Delivery Rate 08/14 1218 Nasal 1.0L Cannula 08/14 1210 Nasal 1.0L Cannula 08/14 0845 59 150/80 08/14 0832 95 Nasal 1.0L Cannula 08/14 0800 95 Nasal 1.0L Cannula 08/14 0625 99.0 59 20 150/80 95 Nasal 1.0L Cannula 08/14 0000 94 Nasal 2.0L Cannula 08/13 2200 98.4 92 24 112/60 96 Nasal 1.0L Cannula 08/13 2019 92 114/60 08/13 1600 Nasal 2.0L Cannula 08/13 1425 97.7 94 18 126/74 93 Nasal Cannula Intake & Output 08/14 1600 08/14 0800 08/14 0000 Intake Total 100 300 Output Total 225 450 Balance -125 -150 Intake, IV 0 Intake, Oral 100 300 Number 1 Bowel Movements Output, Urine 225 450 Patient 59.562 kg Weight Physical Exam General Appearance: Alert, Oriented X3, Cooperative, No Acute Distress Skin: feet macular rash HEENT: Atraumatic, PERRLA, EOMI, Mucous Membr. moist/pink Neck: No JVD Cardiovascular: Regular Rate, Normal S1, Normal S2, 2/6 systolic murmur Lungs: decrease air-entry over lung base b/l Abdomen: Soft, No Tenderness Neurological: Normal Speech Extremities: No Clubbing, No Cyanosis Current Medications: Current Medications Sig/Tata Start time Last Medication Dose Route Stop Time Status Admin Acetaminophen 650 MG Q6P PRN 08/10 06 AC 08/12 PO 2103 Acetaminophen 1,000 MG Q6P PRN 08/10 06 AC IV Albuterol Sulfate 3 ML BID 08/10 2100 AC 08/14 INH 0814 Alendronate Sodium 70 MG QTHURS@0700 08/16 0700 AC PO Atorvastatin Calcium 40 MG 1700 08/10 1700 AC 08/13 PO 1716 Azithromycin 500 MG DAILY 08/10 0900 DC 08/14 Sodium Chloride 250 ML IV 08/14 0959 0845 Diltiazem HCl 30 MG BID 08/10 0900 AC 08/14 PO 0845 Diphenhydramine HCl 1 JAVIER TID PRN 08/14 0915 AC 08/14 TOP 1036 Enoxaparin Sodium 40 MG DAILY 08/10 09 AC 08/14 SC 0845 Guaifenesin 600 MG Q12 08/10 0900 AC 08/14 PO 0845 Levothyroxine Sodium 0.1 MG DAILY AC 08/10 0700 AC 08/14 PO 0554 Melatonin 5 MG AT BEDTIME 08/12 2100 AC 08/13 PO 2015 Omeprazole 40 MG DAILY AC 08/14 0840 AC 08/14 PO 0849 Polyethylene Glycol 17 GM AT BEDTIME NEED.. 08/10 0600 AC PO Prednisone 30 MG DAILY 08/14 0900 AC 08/14 PO 08/15 0901 0844 Prednisone 40 MG DAILY 08/12 0900 DC 08/13 PO 0804 Tiotropium [place] 1 PUF DAILY 08/10 09 AC 08/14 INH 0842 Assessment/Plan Assessment: The patient continued to reports improvement of her shortness of breath. She is currently on 2 L nasal cannula which exactly what she use home. Is complaining this morning from review of Ultracet feet macular rash associated with pruritus. Epigastric abdominal pain and nausea resolved. Problem list * Chronic hypoxic respiratory failure with acute COPD exacerbation * hypothyroidism * hyperlipidemia * HFPEF * Mild epigastric discomfort associated with nausea Plan: * Continuous telemetry monitoring, until discharge * Continue prednisone 30mg X2, 20mg X2, 10mg X2, then stop * DC azithromycin, she finished 5 days. * TRC, nebs PRN * Continue home does of O2 (2 L) * We will instruct the patient to follow with [facility] * We will try to treat LE rash with Benadryl for itching and possible reaction * DVT Prophylaxis: SC heparin x 3 * Diet: heart healthy * Code: Full Code Problem List: 1. COPD exacerbation Pain Ratin Pain Location: epigastric Pain Goal: Remain pain free Pain Plan: See A&P Tomorrow's Labs & Rationales: non need for labs Javi Russ 08/14/17 1046: Attending MD Review Statement Attending Statement Attending MD Statement: examined this patient, discuss w/resident/PA/YACHT HAND, agreed w/resident/PA/YACHT HAND, discussed with family, reviewed EMR data (avail), discussed with nursing, discussed with case mgmt, reviewed images, amended to note Attending Assessment/Plan: Patient denies any new complaints. Her nasuea is improved significantly with iv ppi one dose yesterday. She is working with PT today and has her shoes. Discharge planning either to [facility] or home as per PT recommendations. She appears medically stable for discharge.
--- NOTE | 2017-08-14 08:44 | PN- Pulmonary ---
Subjective HPI/Critical Care Issues: Patient feels mildly improved but continues to have shortness of breath with activities of daily living. She has not walked and feels unsteady Objective Current Medications: Current Medications Sig/Tata Start time Last Medication Dose Route Stop Time Status Admin Acetaminophen 650 MG Q6P PRN 08/10 06 AC 08/12 PO 2103 Acetaminophen 1,000 MG Q6P PRN 08/10 06 AC IV Albuterol Sulfate 3 ML BID 08/10 2100 AC 08/14 INH 0814 Alendronate Sodium 70 MG QTHURS@0700 08/16 0700 AC PO Atorvastatin Calcium 40 MG 1700 08/10 1700 AC 08/13 PO 1716 Azithromycin 500 MG DAILY 08/10 09 AC 08/13 Sodium Chloride 250 ML IV 08/14 0959 0804 Diltiazem HCl 30 MG BID 08/10 09 AC 08/13 PO 2019 Enoxaparin Sodium 40 MG DAILY 08/10 09 AC 08/13 SC 0812 Guaifenesin 600 MG Q12 08/10 09 AC 08/13 PO 2015 Levothyroxine Sodium 0.1 MG DAILY AC 08/10 0700 AC 08/14 PO 0554 Melatonin 5 MG AT BEDTIME 08/12 2100 AC 08/13 PO 2015 Omeprazole 40 MG DAILY AC 08/14 0840 UNVr PO Ondansetron HCl 4 MG ONCE ONE 08/13 1030 DC 08/13 IV 08/13 1031 1049 Pantoprazole Sodium 40 MG ONCE ONE 08/13 1030 DC 08/13 IV 08/13 1031 1049 Polyethylene Glycol 17 GM AT BEDTIME NEED.. 08/10 06 AC PO Prednisone 30 MG DAILY 08/14 09 AC PO 08/15 0901 Prednisone 40 MG DAILY 08/12 0900 DC 08/13 PO 0804 Tiotropium [place] 1 PUF DAILY 08/10 09 AC 08/13 INH 0804 Vital Signs & I&O Last 24 Hrs of Vitals and I&O: Vital Signs Date Time Temp Pulse Resp B/P B/P Pulse O2 O2 Flow FiO2 Mean Ox Delivery Rate 08/14 0832 95 Nasal 1.0L Cannula 08/14 0625 99.0 59 20 150/80 95 Nasal 1.0L Cannula 08/14 0000 94 Nasal 2.0L Cannula 08/13 2200 98.4 92 24 112/60 96 Nasal 1.0L Cannula 08/13 2019 92 114/60 08/13 1600 Nasal 2.0L Cannula 08/13 1425 97.7 94 18 126/74 93 Nasal Cannula 08/13 1053 95 Nasal 1.0L Cannula Intake & Output 08/14 1600 08/14 0800 08/14 0000 Intake Total 100 300 Output Total 225 450 Balance -125 -150 Intake, IV 0 Intake, Oral 100 300 Number 1 Bowel Movements Output, Urine 225 450 Patient 131 lb Weight Oxygen saturation 1 L 95% exam for chest shows decreased breath sounds are no wheezes cardiac exam shows regular S1 and S2 without murmurs Impression/Plan Impression/Plan Impression/Plan: 87-year-old with severe COPD admitted with exacerbation is slowly improving. She continues to have limiting shortness of breath and instability. Recommendations: Continue slow prednisone taper. Taper FiO2 his saturations allow. Recommend short-term rehabilitation
[2017-08-14 14:25] VITALS: BP 144/64
[2017-08-14 22:00] VITALS: BP 122/70
[2017-08-15 06:47] VITALS: BP 126/70
--- NOTE | 2017-08-15 08:34 | PN- Pulmonary ---
Subjective HPI/Critical Care Issues: Patient continues to have chronic shortness of breath Objective Current Medications: Current Medications Sig/Tata Start time Last Medication Dose Route Stop Time Status Admin Acetaminophen 650 MG Q6P PRN 08/10 06 AC 08/12 PO 2103 Acetaminophen 1,000 MG Q6P PRN 08/10 06 AC IV Albuterol Sulfate 3 ML BID 08/10 2100 AC 08/15 INH 0443 Alendronate Sodium 70 MG QTHURS@0700 08/16 0700 AC PO Atorvastatin Calcium 40 MG 1700 08/10 1700 AC 08/14 PO 1627 Azithromycin 500 MG DAILY 08/10 0900 DC 08/14 Sodium Chloride 250 ML IV 08/14 0959 0845 Diltiazem HCl 30 MG BID 08/10 09 AC 08/14 PO 205 Diphenhydramine HCl 1 JAVIER TID PRN 08/14 0915 AC 08/14 TOP 1036 Enoxaparin Sodium 40 MG DAILY 08/10 0900 AC 08/14 SC 0845 Guaifenesin 600 MG Q12 08/10 0900 AC 08/14 PO 205 Levothyroxine Sodium 0.1 MG DAILY AC 08/10 0700 AC 08/15 PO 0502 Melatonin 5 MG AT BEDTIME 08/12 2100 AC 08/14 PO 205 Omeprazole 40 MG DAILY AC 08/14 0840 AC 08/15 PO 0502 Polyethylene Glycol 17 GM AT BEDTIME NEED.. 08/10 0600 AC PO Prednisone 30 MG DAILY 08/14 0900 AC 08/14 PO 08/15 0901 0844 Tiotropium [place] 1 PUF DAILY 08/10 0900 AC 08/14 INH 0842 Vital Signs & I&O Last 24 Hrs of Vitals and I&O: Vital Signs Date Time Temp Pulse Resp B/P B/P Pulse O2 O2 Flow FiO2 Mean Ox Delivery Rate 08/15 0647 97.5 65 22 126/70 96 Nasal Cannula 08/15 0458 94 Nasal 1.0L Cannula 08/15 0000 95 Nasal 1.0L Cannula 08/140 98.8 89 18 122/70 94 Nasal 1.0L Cannula 08/148 89 122/70 08/148 96 Nasal 1.0L Cannula 08/14 1600 Nasal 1.0L Cannula 08/14 1425 97.8 88 20 144/64 95 Nasal 1.5L Cannula 08/14 1218 Nasal 1.0L Cannula 08/14 1210 Nasal 1.0L Cannula 08/14 0845 59 150/80 Intake & Output 08/15 1600 08/15 0800 08/15 0000 Intake Total 50 350 Output Total 300 Balance -250 350 Intake, Oral 50 350 Number 0 Bowel Movements Output, Urine 300 Patient 130 lb Weight Since saturation 1 L 96% exam for chest shows decreased breath sounds are no wheezes cardiac exam shows regular S1 and S2 without murmurs Impression/Plan Impression/Plan Impression/Plan: 87-year-old with severe COPD chronic shortness of breath chronic hypoxic respiratory failure has improved. Family is raise concern regarding their ability to care for her at home. A period of pulmonary short-term rehabilitation would be beneficial Recommendations: Continue slow prednisone taper. Taper FiO2 his saturations allow await decision on short-term rehabilitation placement
[2017-08-15] MEDS ORDERED: PREDNISONE10 M2 PO ×2 (08:45→08:52)
[2017-08-15] MEDS ORDERED: OMEPRAZOLE20 M2 PO (08:54)
[2017-08-15 12:29] VITALS: BP 126/70
--- NOTE | 2017-08-15 12:49 | PN- Housestaff ---
Subjective Follow-up For: COPD exacerbation Tele-Events Since Last Visit: Normal sinus rhythm Subjective: Afebrile, hemodynamically stable, saturating mid 90s on 2 L NC. Sitting chair looks relaxed and comfortable. She denies any current active complaints. Review of Systems Constitutional: Reports: no symptoms, see HPI. Objective Last 24 Hrs of Vital Signs/I&O Vital Signs Date Time Temp Pulse Resp B/P B/P Pulse O2 O2 Flow FiO2 Mean Ox Delivery Rate 08/15 1229 97.5 65 22 126/70 08/15 0932 126/70 08/15 0924 94 Nasal 2.0L Cannula 08/15 0800 94 Nasal 1.0L Cannula 08/15 0647 97.5 65 22 126/70 96 Nasal Cannula 08/15 0458 94 Nasal 1.0L Cannula 08/15 0000 95 Nasal 1.0L Cannula 08/14 2200 98.8 89 18 122/70 94 Nasal 1.0L Cannula 08/14 2058 89 122/70 08/14 2028 96 Nasal 1.0L Cannula 08/14 1600 Nasal 1.0L Cannula 08/14 1425 97.8 88 20 144/64 95 Nasal 1.5L Cannula Intake & Output 08/15 1600 08/15 0800 08/15 0000 Intake Total 50 350 Output Total 250 300 Balance -250 -250 350 Intake, Oral 50 350 Number 0 Bowel Movements Output, Urine 250 300 Patient 58.995 kg Weight Physical Exam General Appearance: Alert, Oriented X3, Cooperative, No Acute Distress Skin: No Rashes HEENT: Atraumatic, PERRLA, EOMI, Mucous Membr. moist/pink Neck: No JVD Cardiovascular: Regular Rate, Normal S1, Normal S2, 2/6 murmur Lungs: Clear to Auscultation, Normal Air Movement Abdomen: Soft, No Tenderness Neurological: Normal Speech Extremities: No Clubbing, No Cyanosis, No Edema Current Medications: Current Medications Sig/Tata Start time Last Medication Dose Route Stop Time Status Admin Acetaminophen 650 MG Q6P PRN 08/10 599 AC 08/12 PO 2103 Acetaminophen 1,000 MG Q6P PRN 08/10 599 AC IV Albuterol Sulfate 3 ML BID 08/10 2100 AC 08/15 INH 0921 Alendronate Sodium 70 MG QTHURS@0700 08/16 07 AC PO Atorvastatin Calcium 40 MG 1700 08/10 1700 AC 08/14 PO 1627 Diltiazem HCl 30 MG BID 08/10 0900 AC 08/15 PO 0932 Diphenhydramine HCl 1 JAVIER TID PRN 08/14 0915 AC 08/14 TOP 1036 Enoxaparin Sodium 40 MG DAILY 08/10 0900 AC 08/15 SC 0932 Guaifenesin 600 MG Q12 08/10 0900 AC 08/15 PO 0932 Levothyroxine Sodium 0.1 MG DAILY AC 08/10 0700 AC 08/15 PO 0502 Melatonin 5 MG AT BEDTIME 08/12 2100 AC 08/14 PO 2056 Omeprazole 40 MG DAILY AC 08/14 0840 AC 08/15 PO 0502 Polyethylene Glycol 17 GM AT BEDTIME NEED.. 08/10 06 AC PO Prednisone 30 MG DAILY 08/14 0900 DC 08/15 PO 08/15 0901 0932 Tiotropium [place] 1 PUF DAILY 08/10 09 AC 08/15 INH 1225 Assessment/Plan Assessment: The patient continued to reports improvement of her shortness of breath. She is currently on 2 L NC which at her base line. She looks relaxed and denies any active complaints. Problem list * Chronic hypoxic respiratory failure with acute COPD exacerbation * hypothyroidism * hyperlipidemia * HFPEF * Mild epigastric discomfort associated with nausea Plan: * Stable for discharge * Will be discharged on prednisone taper as 20mg X2, 10mg X2, then stop * She completed 5 days of azithromycin. * She will be discharge on her home inhalers * Continue home does of O2 (2 L) * We will instruct the patient to follow with wellness Center * Diet: heart healthy * Code: Full Code Problem List: 1. COPD exacerbation Pain Ratin Pain Location: na Pain Goal: Remain pain free Pain Plan: See A&P Tomorrow's Labs & Rationales: none as she is stable for discharge
== END 2017-08-15 14:06 | DRG 191 ==
LOC: ERH 02:15 → ERHI 04:08 → 1NO 04:08 → ENRESERV 05:43 → 1NO 06:49 → ENPENDDIS 08-15 12:53 → 1NO 08-15 14:06
PROVIDERS: Emergency Medicine; Internal Medicine; Student in an Organized Health Care Education/Training Program
DX: J44.1 Chronic obstructive pulmonary disease with (acute) exacerbation (principal); I50.32 Chronic diastolic (congestive) heart failure; I27.81 Cor pulmonale (chronic); J96.11 Chronic respiratory failure with hypoxia; I11.0 Hypertensive heart disease with heart failure; Z99.81 Dependence on supplemental oxygen; E78.5 Hyperlipidemia, unspecified; Z88.5 Allergy status to narcotic agent; Z86.73 Personal history of transient ischemic attack (TIA), and cerebral infarction without residual deficits; E03.9 Hypothyroidism, unspecified; Z79.52 Long term (current) use of systemic steroids
CPT/HCPCS: 1NP; 36415; 36592; 71045; 82436; 93005; 93010; 93306; 93970; 97110-GO; 97116-GO; 97161-GP; 97530-GO; 99291; J0131; J0456; J1650; J1940; J2405; J2920; J2930; J7040; J7512